=== PATIENT | female | born 1960 | race African-American/Black ===

== ENCOUNTER 2020-11-05 20:32 | Inpatient (IN) ==
--- NOTE | 2020-11-05 21:15 | DR.EXTPAIN ---
HPI Time seen Time Seen by Provider: 11/05/20 20:51 PCP Primary Care Physician: TISHA HPI Comment HPI Comment: PATIENT IS 60 YEAR OLD FEMALE IN ER WITH PAIN, SWELLING LOWER EXTREMITIES AND NECROTIC WOUND ON THE RIGHT LEG. PATIENT IS HAVING WALKER, HAVING PROBLEM ANBULATING AND WORSENING OF UCER AND REDNESS RIGHT LEG. NO FEVER. ULCER HAVE DRAINAGE ALSO. EDEMA LOWER EXTREMITY IS WORSE TODAY. HAVING 8/10 PAIN RT LOWER EXTREMITY. Complaint/Symptoms Chief Complaint Doctor Comments: PAIN AND SWELLING IN LOWER EXTREMITIES AND NECROTIC WOUND RT LEG. Chief Complaint:: PT C/O RT LOWER EXT PAIN AND SWELLING OF THE ENTIRE RT LEG.PT HAS A OPEN WOUND WITH EXUDATE TO RT LOWER EXT COVID-19 Coronavirus risk:travel/contact w/high risk person: No Has patient experienced Coronavirus symptoms: No Nurses notes reviewed Nurses Notes Review: Yes Source History Provided: Patient and Family Member Mode of arrival Mode of Arrival: Wheelchair Timing Onset of Chief Complaint: 11/05/20 Context History of: Arthritis Associated signs and symptoms Associated Signs and Symptoms: Numbeness, Weakness, Pain, Swelling and Shortness of Breath (ON EXERTION.) Other history Other History: HTN. PMH PMH Past Medical History: Yes Past Medical History: Hypertension Past Medical History Comment: CANCER Past Surgical History: Yes Surgical History: Angioplasty/Stents Family History History of Family Medical Conditions: Yes Family Medical History: Diabetes Mellitus, Cancer, [place], Coronary Artery Disease and Hypertension Social History Type of Tobacco Use: Cigarettes Does any household member use tobacco: Yes Alcohol Use: None Do you use any recreational Drugs:: No Lives With: Family Lives Where: Home Travel Risk Coronavirus risk:travel/contact w/high risk person: No Has patient experienced Coronavirus symptoms: No Infectious screening In the last 2 months have you had wt loss of >10#?: NO Have you had fever, night sweats or hemotysis?: No Have you traveled outside the country in the last 6 months?: No Isolation: Standard ROS Review of Systems Constitutional: See HPI, Weakness and Fatigue; negative Fever Eyes: No Symptoms Reported and See HPI ENTM: No Symptoms Reported; negative Nose Discharge and Nose Congestion Respiratoy: See HPI and Short of Breath (ON EXERTION); negative Moist Cough and Wheezing Cardiovascular: See HPI and Edema; negative Chest Pain Gastrointestinal/Abdominal: No Symptoms Reported and See HPI; negative Abdominal Pain, Diarrhea and Vomiting Genitourinary: No Symptoms Reported and See HPI; negative Dysuria and Hematuria Neurological: See HPI and Weakness; negative Headache and Dizziness Musculoskeletal: See HPI, Back Pain and Leg (RIGHT LEG PAIN.) Integumentary: See HPI, Change in Color and Wound (NECROTIC WOUND RIGHT LEG WITH REDNESS RT LEG.) Hematologic/Lymphatic: See HPI and Easy Bruising Endocrine: No Symptoms Reported and See HPI; negative Increased Thirst and Increased Urine Psychiatric: No Symptoms Reported and See HPI All Other Systems: Reviewed and Negative PE Vital Signs Vitals: Temperature 98.3 F Pulse Rate 99 Respiratory Rate 20 Blood Pressure [Left Calf] 114/77 Blood Pressure [Right Arm] 143/77 Blood Pressure 118/56 O2 Sat by Pulse Oximetry 90 General General Appearance: Alert, In Distress (MILD RESPITORY DISTRESS ON MOVEMENT.) and Obese Head Head Exam: Normal Inspection and Atraumatic Eyes Eye exam: Normal Appearance and PERRL; negative Scleral Icterus and Conjunctival Injection ENT ENT Exam: Normal Exam, Normal Oropharynx, Normal External Ear Exam and TM's Normal Bilaterally Neck Neck Exam: Normal Inspection and Trachea Midline; negative Tenderness and Lymphadenopathy Chest Chest Inspection: Normal Inspection and Symmetric Chest Wall Rise; negative Tenderness Respiratory Respiratory Exam: Respiratory Distress; negative Accessory Muscle Use and Chest Wall Tenderness Respiratory Exam: Bilateral: Rhonchi and Lower: Rhonchi Cardiovascular Cardiovascular Exam: Regular Rate, Normal Rhythm and Normal Heart Sounds; negative Systolic Murmur and Diastolic Murmur Abdominal Exam Abdominal Exam: Normal Inspection, Normal Bowel Sounds and Soft; negative Tenderness Extremities Extremities Exam: Tenderness, Normal Capillary Refill, Edema (LOWER EXTREMITIES.), Calf Tenderness and Other (NECROTIC WOUND LOWER EXTREMITIES.) Lower Extremities Lower Leg Exam: Other (NECROTIC WOUND LOWER LED. REDNESS LEGS GREATER RT LEG.) Back Back Exam: Paraspinal Tenderness; negative (R) CVA Tenderness and (L) CVA Tenderness Neurological Neurological Exam: Alert and Oriented X3; negative Motor Sensory Deficit Psychiatric Psychiatric Exam: Normal Affect and Normal Mood Skin Skin Exam: Erythema Type of Lesion: Other (NECROTIC WOUND LOWER EXTREMITIES.) Distribution: LLE and RLE Description: Tenderness, Erythematous and Swelling MDM Differential Diagnosis Differential Diagnosis: Other (NECROTIC WOUND RT LEG, EDEMA, CELLULITIS, CHF.) COURSE Treatment Treatment: SEE ORDERS. VANCOMYCIN 1GM IVPC, LAXIX 40MG IV, ZOFRAN 4MG IV AND ZOREAN 4MG IV IN ER. Consultation Consultation Comments: DISCUSSED PATIENT WITH DR. MERA. HE WILL ADMIT PATIENT. Education/Counseling Education/Counseling: Patient and Family Educated On: Diagnosis ROR Labs Reviewed Laboratory Results Reviewed?: Yes Result Diagrams: 11/11/20 05:44 11/11/20 05:44 Laboratory: 11/05/20 21:56 Leg - Right Wound Gram Stain - Final 11/05/20 21:56 Leg - Right Wound Culture - Final Acinetobacter Baumanii/Haemoly Staphylococcus Aureus WBC 8.7 X10^3/uL (3.6-10.0) 11/05/20 21:25 RBC 4.59 X10^6/uL (3.5-5.4) 11/05/20 21:25 Hgb 15.0 g/dL (12.0-16.0) 11/05/20 21:25 Hct 46.2 % (36.0-47.0) 11/05/20 21:25 MCV 100.7 fL (80.0-100.0) H 11/05/20 21:25 MCH 32.8 pg (27.0-34.0) 11/05/20 21:25 MCHC 32.6 g/dL (33.0-35.0) L 11/05/20 21:25 RDW 14.6 % (11.6-16.5) 11/05/20 21: Plt Count 123 X10^3/uL (150.0-450.0) L 11/05/20 21:25 MPV 10.3 fL (7.4-11.0) 11/05/20 21:25 Neut % (Auto) 87.6 % (42.0-75.0) H 11/05/20 21:25 Lymph % (Auto) 5.8 % (21.0-51.0) L 11/05/20 21:25 [place] % (Auto) 5.8 % (0.0-13.0) 11/05/20 21:25 Eos % (Auto) 0.5 % (0.9-2.9) L 11/05/20 21:25 Baso % (Auto) 0.3 % (0.2-1.0) 11/05/20 21:25 Neut # (Auto) 7.6 x10^3/uL (2.2-4.8) H 11/05/20 21:25 Lymph # (Auto) 0.5 X10^3/uL (1.3-2.9) L 11/05/20 21:25 [place] # (Auto) 0.5 x10^3/uL (0.3-0.8) 11/05/20 21:25 Eos # (Auto) 0.0 x10^3/uL (0.0-0.2) 11/05/20 21:25 Baso # (Auto) 0.0 X10^3/uL (0.0-0.1) 11/05/20 21:25 Absolute Nucleated RBC 0.3 /100WBC 11/05/20 21:25 Sodium 134 mmol/L (136-145) L 11/05/20 21:25 Corrected Sodium TNP 11/05/20 21:25 Potassium 4.3 mmol/L (3.5-5.1) 11/05/20 21:25 Chloride 98 mmol/L (98-107) 11/05/20 21:25 Carbon Dioxide 30.3 mmol/L (21-32) 11/05/20 21:25 BUN 31 mg/dL (7-18) H 11/05/20 21:25 Creatinine 1.36 mg/dL (0.55-1.02) H 11/05/20 21:25 Est GFR (MDRD) Af Amer 51 (>60) L 11/05/20 21:25 Est GFR (MDRD) Non-Af 42 (>60) L 11/05/20 21:25 Glucose 82 mg/dL (65-99) 11/05/20 21:25 Calcium 9.0 mg/dL (8.5-10.1) 11/05/20 21:25 Corrected Calcium 10.0 mg/dL (8.5-10.1) 11/05/20 21:25 Total Bilirubin 2.30 mg/dL (0.2-1.0) H 11/05/20 21:25 AST 39 Units/L (15-37) H 11/05/20 21:25 ALT 14 Units/L (12-78) 11/05/20 21:25 Alkaline Phosphatase 93 Units/L (46-116) 11/05/20 21:25 Creatine Kinase 308 Units/L (26-192) H 11/05/20 21:25 CK-MB (CK-2) 3.1 ng/mL (0-4.0) 11/05/20 21:25 CK/CKMB % Calc 1.0 % (<4) 11/05/20 21:25 Troponin I 0.02 ng/mL (0-1.5) 11/05/20 21: B-Natriuretic Peptide 1190 pg/mL (0-79) H* 11/05/20 21:25 Total Protein 7.4 g/dL (6.4-8.2) 11/05/20 21: Albumin 2.8 g/dL (3.4-5.0) L 11/05/20 21: Globulin 4.6 g/dL (2.5-4.5) H 11/05/20 21: Albumin/Globulin Ratio 0.6 Ratio (1.1-2.1) L 11/05/20 21:25 Specimen Type Catherized urine 11/06/20 00: Urine Color Mya (YELLOW) 11/06/20: Urine Appearance Clear (CLEAR) 11/06/20 00: Urine pH 5.0 (5.0 - 8.0) 11/06/20 00:19 Ur Specific [place] 1.015 (1.000-1.030) 11/06/20 00: Urine Protein 3+ (NEGATIVE) 11/06/20 00: Urine Glucose (UA) Negative (NEGATIVE) 11/06/20 00: Urine Ketones 1+ (NEGATIVE) 11/06/20: Urine Occult Blood 3+ (NEGATIVE) 11/06/20: Urine Nitrite Negative (NEGATIVE) 11/06/20: Urine Bilirubin 2+ (NEGATIVE) 11/06/20: Urine Urobilinogen 3+ (NORMAL) 11/06/20: Ur Leukocyte Esterase 1+ (NEGATIVE) 11/06/20: Urine RBC 3-5 /HPF (0-3) A 11/06/20 00: Urine WBC 0-2 /HPF (0-5) 11/06/20 00: Ur Squamous Epith Cells Rare /HPF (NEGATIVE) 11/06/20 00: Urine Bacteria Negative /HPF (NEGATIVE) 11/06/20 00:19 Hyaline Casts Many /LPF (NEGATIVE) 11/06/20 00:19 Urine Mucus Few /HPF (NEGATIVE) 11/06/20 00:19 Ur Culture Indicated? No/not indicated 11/06/20 00:19 SARS-CoV-2 (PCR) Negative (NEGATIVE) 11/05/20 22:21 Influenza Type A (PCR) Negative (NEGATIVE) 11/05/20 22:21 Influenza Type B (PCR) Negative (NEGATIVE) 11/05/20 22:21 RSV (PCR) Negative (NEGATIVE) 11/05/20 22:21 XRAY XRAY Interpreted by: Radiologist (REPORT NOTED AND DISCUSSED WITH PATIENT.) and Self EKG Rate: 101 [place]: Normal Rhythm: ST Block: RBBB and IVCD Hypertrophy: None ST: Nonsp Opioid Opioid Risk Tool Age (Robel box if 16-45): No History of Preadolescent Sexual Abuse: No Total: 0 Total Score Risk Category: Low Risk Copyright: Laureano LR predicting aberrant behaviors Diagnosis Discharge Problem: 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 CHF (congestive heart failure) Qualifiers: Heart failure type: combined systolic and diastolic Heart failure chronicity: acute on chronic Qualified Code(s): I50.43 - Acute on chronic combined systolic (congestive) and diastolic (congestive) heart failure Hypertension Qualifiers: Hypertension type: essential hypertension Qualified Code(s): I10 - Essential (primary) hypertension Cellulitis Qualifiers: Site of cellulitis: extremity Site of cellulitis of extremity: lower extremity Laterality: right Qualified Code(s): L03.115 - Cellulitis of right lower limb Edema Qualifiers: Edema type: localized Qualified Code(s): R60.0 - Localized edema Instructions Instructions: Steps to Quit Smoking, [id number] Cellulitis, Adult, [id number] Hypertension, [id number] Surgical Wound Debridement, Care After Heart Failure, [id number]
[2020-11-05] MEDS ORDERED: ZOFRAN INJ 4 MG VIAL IVP ONE (21:38)
[2020-11-05] MEDS ORDERED: MORPHINE SULFATE INJ 4 MG IVP ONE (21:38)
[2020-11-05 21:40] LABS: BASOPHILS % (AUTO) 0.3 % (0.2-1.0); EOSINOPHILS % (AUTO) 0.5 % (0.9-2.9); HEMATOCRIT 46.2 % (36.0-47.0); LYMPHOCYTES # (AUTO) 0.5 X10^3/uL (1.3-2.9); LYMPHOCYTES % (AUTO) 5.8 % (21.0-51.0); MEAN CORPUSCULAR HEMOGLOBIN 32.8 pg (27.0-34.0); MEAN CORPUSCULAR HGB CONC 32.6 g/dL (33.0-35.0); MEAN CORPUSCULAR VOLUME 100.7 fL (80.0-100.0); MEAN PLATELET VOLUME 10.3 fL (7.4-11.0); MONOCYTES # (AUTO) 0.5 x10^3/uL (0.3-0.8); MONOCYTES % (AUTO) 5.8 % (0.0-13.0); NEUTROPHILS # (AUTO) 7.6 x10^3/uL (2.2-4.8); NEUTROPHILS % (AUTO) 87.6 % (42.0-75.0); PLATELET COUNT 123 X10^3/uL (150.0-450.0); RED BLOOD COUNT 4.59 X10^6/uL (3.5-5.4); RED CELL DISTRIBUTION WIDTH 14.6 % (11.6-16.5); WHITE BLOOD COUNT 8.7 X10^3/uL (3.6-10.0)
[2020-11-05] MEDS ORDERED: MORPHINE SULFATE INJ 4 MG ONE (21:50)
[2020-11-05] MEDS ORDERED: ZOFRAN INJ 4 MG VIAL ONE (21:50)
[2020-11-05 21:52] LABS: BLOOD UREA NITROGEN 31 mg/dL (7-18); CARBON DIOXIDE 30.3 mmol/L (21-32); CHLORIDE 98 mmol/L (98-107); CREATININE 1.36 mg/dL (0.55-1.02); SODIUM 134 mmol/L (136-145); TROPONIN I 0.02 ng/mL (0-1.5); eGFR NON BLACK RACES 42 (>60)
[2020-11-05 21:57] LABS: ALANINE AMINOTRANSFERASE 14 Units/L (12-78); ALBUMIN 2.8 g/dL (3.4-5.0); ALKALINE PHOSPHATASE 93 Units/L (46-116); ASPARTATE AMINO TRANSFERASE 39 Units/L (15-37); CREATINE KINASE 308 Units/L (26-192); CREATINE KINASE MB 3.1 ng/mL (0-4.0); TOTAL PROTEIN 7.4 g/dL (6.4-8.2)
--- NOTE | 2020-11-05 22:03 | RAD ---
EXAM: CHEST X-RAYHISTORY: Right upper extremity pain and swelling. Open wound.TECHNIQUE: AP chest x-ray dated 11/05/2020 at 9:39 PM.COMPARISON: None.FINDINGS:The right anterior chest wall chest port is noted in situ with the distal tip in the right atrium. There is severe aortic atherosclerosis.There is evidence for cardiomegaly. The pulmonary vascularity and interstitial markings are diffusely prominent, consistent with mild CHF or volume overload in the appropriate clinical setting; differential diagnosis includes (but is not limited to) mild bronchitis and interstitial pneumonia in the appropriate clinical setting.There is no gross focal lung consolidation, pleural effusion, or pneumothorax seen. The visualized bony structures are within normal limits.IMPRESSION:1. Findings consistent with mild CHF or volume overload in the appropriate clinical setting; DDX includes (but is not limited to) mild bronchitis and interstitial pneumonia in the appropriate clinical setting.2. Recommend clinical correlation and appropriate follow-up CXR evaluation to ensure interval clearance as clinically warranted.3. Consider follow-up noncontrast chest CT to rule out Covid pneumonia if clinically warranted.Electronically signed by: Tavon Che (November 05, 2020 22:01:45)
--- NOTE | 2020-11-05 22:07 | RAD ---
EXAM: RIGHT TIBIA/FIBULA X-RAY SERIESHISTORY: Pain.TECHNIQUE: 2 viewsCOMPARISON: None available.FINDINGS:There is no acute bony fracture, or joint subluxation or dislocation seen. No evidence for inflammatory or degenerative arthritis is seen. No focal bone erosion or sclerosis is seen. There are plantar and Achilles calcaneal bone spurs. There is no bone destruction reminiscent of osteomyelitis seen.The leg is obese. There is suggestion of nonspecific dermal and/or subcutaneous soft tissue calcifications throughout the distal leg. There is cutaneous ulceration and subcutaneous emphysema seen in the distal anterior pretibial region which may represent cellulitis with gas producing organism; rule out necrotizing fasciitis. Clinical correlation is advised. No foreign body is seen.IMPRESSION:1. No acute bony fracture, or joint subluxation or dislocation seen.2. No bone destruction reminiscent of osteomyelitis seen. Consider follow-up MRI to rule out radiographically occult early osteomyelitis as clinically warranted.3. Suggestion of nonspecific dermal and/or subcutaneous soft tissue calcifications throughout the distal leg; DDx includes sequela of chronic venous stasis changes.4. Cutaneous ulceration and subcutaneous emphysema seen in the distal anterior pretibial region which may represent cellulitis with gas producing organism; rule out necrotizing fasciitis. Clinical correlation is advised. Consider follow-up evaluation and CT for further assessment as clinically warranted.Electronically signed by: Tavon Che (November 05, 2020 22:05:06)
[2020-11-05] MEDS ORDERED: PHARMACY CONSULT - VANCOMYCIN XX SCH (23:45)
[2020-11-05] MEDS ORDERED: VANCOMYCIN IV *PREMIX 1 G/200 ML BAG 1 G/200 ML PIGGYBACK IV ONE ×2 (23:48→23:54)
[2020-11-06] MEDS ORDERED: ZOFRAN INJ 4 MG VIAL IVP PRN (00:29)
[2020-11-06] MEDS ORDERED: LASIX IVP ONE (00:33)
[2020-11-06] MEDS: LASIX IVP ONE ×2 (00:44→00:45)
[2020-11-06 01:07] LABS: BILIRUBIN,URINE 2+ (NEGATIVE); BLOOD/HEMOGLOBIN,URINE 3+ (NEGATIVE); GLUCOSE, URINE NEGATIVE (NEGATIVE); KETONES,URINE 1+ (NEGATIVE); LEUKOCYTE ESTERASE ,URINE 1+ (NEGATIVE); NITRITES,URINE NEGATIVE (NEGATIVE); PROTEIN,URINE 3+ (NEGATIVE); UROBILINOGEN,URINE 3+ (NORMAL)
[2020-11-06 01:16] LABS: APPEARANCE,URINE CLEAR (CLEAR); COLOR,URINE AMBER (YELLOW)
[2020-11-06 01:17] LABS: BACTERIA,URINE NEGATIVE /HPF (NEGATIVE); HYALINE CASTS, URINE MANY /LPF (NEGATIVE); MUCUS,URINE FEW /HPF (NEGATIVE); SQUAMOUS EPITHELIAL CELL,UR RARE /HPF (NEGATIVE)
[2020-11-06] MEDS ORDERED: NS IRRIGATION* 500 ML IR ONE (02:14)
[2020-11-06 06:09] LABS: BASOPHILS % (AUTO) 0.2 % (0.2-1.0); EOSINOPHILS # (AUTO) 0.1 x10^3/uL (0.0-0.2); EOSINOPHILS % (AUTO) 0.5 % (0.9-2.9); HEMATOCRIT 44.4 % (36.0-47.0); HEMOGLOBIN 14.4 g/dL (12.0-16.0); LYMPHOCYTES # (AUTO) 0.5 X10^3/uL (1.3-2.9); LYMPHOCYTES % (AUTO) 4.7 % (21.0-51.0); MEAN CORPUSCULAR HEMOGLOBIN 33.1 pg (27.0-34.0); MEAN CORPUSCULAR HGB CONC 32.4 g/dL (33.0-35.0); MEAN CORPUSCULAR VOLUME 102.1 fL (80.0-100.0); MONOCYTES # (AUTO) 0.7 x10^3/uL (0.3-0.8); MONOCYTES % (AUTO) 5.9 % (0.0-13.0); NEUTROPHILS # (AUTO) 9.9 x10^3/uL (2.2-4.8); NEUTROPHILS % (AUTO) 88.7 % (42.0-75.0); PLATELET COUNT 119 X10^3/uL (150.0-450.0); RED BLOOD COUNT 4.34 X10^6/uL (3.5-5.4); RED CELL DISTRIBUTION WIDTH 14.6 % (11.6-16.5); WHITE BLOOD COUNT 11.2 X10^3/uL (3.6-10.0)
[2020-11-06 06:18] LABS: ALANINE AMINOTRANSFERASE 12 Units/L (12-78); ALBUMIN 2.6 g/dL (3.4-5.0); ALKALINE PHOSPHATASE 90 Units/L (46-116); ASPARTATE AMINO TRANSFERASE 35 Units/L (15-37); BLOOD UREA NITROGEN 31 mg/dL (7-18); CALCIUM 8.6 mg/dL (8.5-10.1); CARBON DIOXIDE 30.3 mmol/L (21-32); CHLORIDE 100 mmol/L (98-107); COR CA(FOR HYPOALB) 9.7 mg/dL (8.5-10.1); MAGNESIUM 1.7 mg/dL (1.7-2.9); SODIUM 138 mmol/L (136-145); TOTAL PROTEIN 6.9 g/dL (6.4-8.2); eGFR NON BLACK RACES 41 (>60)
[2020-11-06] MEDS ORDERED: LASIX IVP SCH (09:00)
[2020-11-06] MEDS ORDERED: LOVENOX INJ 30 MG SYR SC SCH (09:00)
[2020-11-06] MEDS: ACCUNEB 1.25 MG NEBULE NEB SCH ×4 (09:16→21:43)
[2020-11-06] MEDS ORDERED: NS 250 ML IV 250 ML IV ONE (11:35)
[2020-11-06] MEDS ORDERED: VANCOMYCIN IV *PREMIX 1.75 G/350 ML BAG 1.75 G/350 ML PIGGYBACK IV SCH (12:00)
[2020-11-06] MEDS: MORPHINE SULFATE INJ 4 MG IVP PRN ×2 (12:05→20:58)
[2020-11-06] MEDS: ZOFRAN INJ 4 MG VIAL IVP PRN ×2 (12:05→20:58)
[2020-11-06] MEDS: VANCOMYCIN IV *PREMIX 1.5 G/300 ML BAG 1.5 G/300 ML PIGGYBACK IV SCH (12:06)
[2020-11-06] MEDS: LASIX IVP SCH ×2 (12:14→17:57)
[2020-11-06] MEDS ORDERED: DIPRIVAN VIAL ONE (13:01)
[2020-11-06] MEDS ORDERED: VERSED ONE (13:01)
[2020-11-06] MEDS ORDERED: XYLOCAINE 2 % (PLAIN) ONE (13:01)
[2020-11-06] MEDS ORDERED: KETALAR ONE (13:01)
[2020-11-06] MEDS ORDERED: LEVAQUIN PREMIX IV 750 MG 750 MG/150 ML BAG IV SCH (14:00)
--- NOTE | 2020-11-06 14:33 | DR.H&P ---
H&P - History & Physical for Day of: H&P Date: 11/06/20 - Chief Complaint Chief Complaint: RLE PAIN, SWELLING, WOUND. COUGH, SHORTNESS OF BREATH - History of Present Illness History of Present Illness: IS A 60 YEAR OLD PATIENT OF . SHE PRESENTED TO THE ER WITH COMPLAINTS OF RIGHT LOWER EXTREMITY PAIN AND SWELLING. SHE ALSO REPORTED SHORTNESS OF BREATH AND A NON-PRODUCTIVE COUGH. ON EXAMINATION, PATIENT IS NOTED TO HAVE AN OPEN WOUND WITH NECROSIS AND YELLOW SLOUGH TO THE RIGHT LOWER LEG. THERE WAS A MODERATE AMOUNT OF SEROUS DRAINAGE FROM WOUND. RIGHT LOWER EXTREMITY IS ALSO NOTED TO HAVE ERYTHEMA AND 4+ PITTING EDEMA. SHE REPORTS THROBBING PAIN AND RATES IT A 4/10. AUSCULTATION OF LUNG SY REVEALED DIMINISHED LUNG SOUNDS THROUGHOUT. HER PMH INCLUDES HTN, BREAST CANCER, CHF AND CARDIAC STENTS. ON ARRIVAL, VITALS WERE 98.3-106-20-89%RA-124/77. LABS WERE OBTAINED. ABNORMAL LAB VALUES INCLUDE THE FOLLOWING: SODIUM 134, BUN 31, CREATININE 1.36, TOTAL BILI 2.30, AST 39, CREATINE KINASE 308, BNP 1190, ALBUMIN 2.8, GLOBULIN 4.6. URINALYSIS REVEALED: WBC 0-2, RBC 3-5, LEUKOCYTES 1+, BILIRUBIN 2+, OCCULT BLOOD 3+, PROTEIN 3+. COVID-19, INFLUENZA, AND RSV NEGATIVE. BLOOD AND WOUND CULTURES WERE SET UP. A RIGHT LOWER LEG XRAY WAS OBTAINED AND REVEALED: 1. No acute bony fracture, or joint subluxation or dislocation seen. 2. No bone destruction reminiscent of osteomyelitis seen. Consider follow-up MRI to rule out radiographically occult early osteomyelitis as clinically warranted. 3. Suggestion of nonspecific dermal and/or subcutaneous soft tissue calcifications throughout the distal leg; DDx includes sequela of chronic venous stasis changes. 4. Cutaneous ulceration and subcutaneous emphysema seen in the distal anterior pretibial region which may represent cellulitis with gas producing organism; rule out necrotizing fasciitis. Clinical correlation is advised. Consider follow-up evaluation and CT for further assessment as clinically warranted. A CHEST XRAY WAS OBTAINED AND REVEALED: 1. Findings consistent with mild CHF or volume overload in the appropriate clinical setting; DDX includes (but is not limited to) mild bronchitis and interstitial pneumonia in the appropriate clinical setting. 2. Recommend clinical correlation and appropriate follow-up CXR evaluation to ensure interval clearance as clinically warranted. 3. Consider follow-up noncontrast chest CT to rule out Covid pneumonia if clinically warranted. EKG REVEALED: SINUS TACHYCARDIA WITH HR 100. IN THE ER, SHE WAS GIVEN MORPHINE 4MG IV X 1 DOSE, ZOFRAN 4MG IV X 1 DOSE, LASIX 40MG IV X 1 DOSE, AND VANCOMYCIN 1G IV X 1 DOSE IN THE ER. [facility]AT[facility] OF RIGHT LOWER EXTREMITY CELLULITIS, RLE NECROTIC ULCER, CHF, AND ACUTE BRONCHITIS. SHE WAS STARTED ON VANCOMYCIN 1.5G IV DAILY, LEVAQUIN 750MG IV DAILY, LOVENOX 30MG SC BID, LASIX 20MG IV BID, MORPHINE 4MG IV Q6H PRN, AND ZOFRAN 4MG IV Q6H PRN. WE WILL CONSULT WITH , GENERAL SURGEON FOR POSSIBLE DEBRIDEMENT OF WOUND. OTHERWISE, WE PLAN TO FOLLOW UP WITH AM LABS AND CONTINUE TO MONITOR. TIME SPENT ON CLINICAL ASSESSMENT, REVIEWING LABS AND IMAGING, DECISION MAKING, AND DOCUMENTATION GREATER THAN 75 MINUTES. - Past Medical History Past Medical History: CHF, Hypertension Additional Medical History: BREAST CANCER - Past Surgical History Surgical History: Angioplasty/Stents - Family History Family Medical History: Diabetes Mellitus, Cancer, [place], Coronary Artery Disease, Hypertension - Social History Does patient currently use any type of tobacco product: Yes Have you used tobacco products in the last 12 months: Yes Type of Tobacco Use: Cigarettes Does any household member use tobacco: Yes Alcohol Use: None Drug Use: None - Medications Home Medications: ceftriaxone [From Rocephin] Allergy (Verified 03/26/19 10:56) Penicillins Allergy (Verified 03/26/19 10:56) CONTINUE taking the following medications furosemide 40 mg PO DAILY 11/05/20 [History] - Review of Systems Constitutional: Weakness Eyes: No Symptoms Reported ENT: No Symptoms Reported Respiratory: See HPI, Cough, Shortness of Breath Cardiovascular: Edema (RLE 4+ PITTING EDEMA ) Gastrointestinal: No Symptoms Reported Genitourinary: No Symptoms Reported Musculoskeletal: See HPI, Leg Pain Skin: See HPI, Wound (RIGHT LOWER EXTREMITY WOUND ) Neurological: See HPI, Weakness - Physical Exam Vital Signs: Temperature 97.2 F Pulse Rate [Brachial] 95 Pulse Rate 87 Respiratory Rate 20 Blood Pressure [Left Calf] 114/77 Blood Pressure [Right Arm] 100/72 Blood Pressure 118/56 O2 Sat by Pulse Oximetry 93 Oriented: Normal Eyes: Normal Ear: Normal Nose: Normal Throat: Normal Respiratory: Diminished Throughout Cardiovascular: Edema (RLE 4+ PITTING EDEMA ) : Normal Auscultation: Bowel Sounds: Normal Palpation: Normal Tenderness: Normal Skin: Red, Tender, Hot, Wound Musculoskeletal: Right, Leg, Swelling, Tender Psychiatric: Normal Mood Description: Calm Affect: Normal Speech Pattern: Clear - Assessment/Plan (1) Lower extremity cellulitis Qualifiers: Laterality: right Qualified Code(s): L03.115 - Cellulitis of right lower limb Status: Acute Plan: ADMIT, CONSULT GENERAL SURGERY, VANCOMYCIN 1.5G IV DAILY, LEVAQUIN 750MG IV DAILY, LOVENOX 30MG SC BID, LASIX 20MG IV BID, MORPHINE 4MG IV Q6H PRN, AND ZOFRAN 4MG IV Q6H PRN. (2) Wound of lower extremity Qualifiers: Encounter type: initial encounter Laterality: right Qualified Code(s): S81.801A - Unspecified open wound, right lower leg, initial encounter Status: Acute (3) Congestive heart failure Qualifiers: Heart failure type: unspecified Heart failure chronicity: acute on chronic Qualified Code(s): I50.9 - Heart failure, unspecified Status: Acute - Allergies Allergies/Adverse Reactions: Allergies Allergy/AdvReac Type Severity Reaction Status Date / Time ceftriaxone [From Rocephin] Allergy Verified 03/26/19 10:56 Penicillins Allergy Verified 03/26/19 10:56
[2020-11-06 22:04] VITALS: BMI 49.6
[2020-11-07] MEDS ORDERED: NS 100 ML IV 100 ML IV ONE ×2 (00:22→05:25)
[2020-11-07] MEDS: ACCUNEB 1.25 MG NEBULE NEB SCH ×6 (00:23→20:52)
[2020-11-07 06:10] LABS: ABG HCO3 26.4 mmol/L (22-26)
[2020-11-07 06:12] LABS: ABG ALLEN TEST POS
[2020-11-07 06:26] LABS: BASOPHILS % (AUTO) 0.4 % (0.2-1.0); EOSINOPHILS % (AUTO) 0.4 % (0.9-2.9); HEMOGLOBIN 14.7 g/dL (12.0-16.0); LYMPHOCYTES # (AUTO) 0.7 X10^3/uL (1.3-2.9); LYMPHOCYTES % (AUTO) 8.3 % (21.0-51.0); MEAN CORPUSCULAR HEMOGLOBIN 33.6 pg (27.0-34.0); MEAN CORPUSCULAR HGB CONC 32.7 g/dL (33.0-35.0); MEAN CORPUSCULAR VOLUME 102.7 fL (80.0-100.0); MEAN PLATELET VOLUME 10.1 fL (7.4-11.0); MONOCYTES # (AUTO) 0.7 x10^3/uL (0.3-0.8); MONOCYTES % (AUTO) 8.1 % (0.0-13.0); NEUTROPHILS # (AUTO) 7.3 x10^3/uL (2.2-4.8); NEUTROPHILS % (AUTO) 82.8 % (42.0-75.0); PLATELET COUNT 124 X10^3/uL (150.0-450.0); RED BLOOD COUNT 4.39 X10^6/uL (3.5-5.4); RED CELL DISTRIBUTION WIDTH 14.7 % (11.6-16.5); WHITE BLOOD COUNT 8.9 X10^3/uL (3.6-10.0)
--- NOTE | 2020-11-07 06:37 | RAD ---
HISTORYCHFSTUDYCHEST, 1 [id number]/09/2021.TECHNIQUEAP view of the chestFINDINGSRight chest wall port with tip in good position. Cardiac silhouette is borderline in size. Mediastinal contours appear stable. CT from 03/26/2019 showed mediastinal adenopathy. Mild improvement of bilateral interstitial and patchy bibasilar pulmonary opacities. Blunted costophrenic sulci. No discernible pneumothorax.IMPRESSIONMild improvement in pulmonary edema. Suspect small pleural effusions.Electronically signed by: Jeff Sheets (November 07, 2020 06:35:22)
[2020-11-07 06:53] LABS: ALANINE AMINOTRANSFERASE 14 Units/L (12-78); ALBUMIN 2.4 g/dL (3.4-5.0); ALKALINE PHOSPHATASE 96 Units/L (46-116); ASPARTATE AMINO TRANSFERASE 59 Units/L (15-37); BLOOD UREA NITROGEN 37 mg/dL (7-18); CALCIUM 8.6 mg/dL (8.5-10.1); CARBON DIOXIDE 24.8 mmol/L (21-32); CHLORIDE 100 mmol/L (98-107); COR CA(FOR HYPOALB) 9.9 mg/dL (8.5-10.1); CREATININE 1.79 mg/dL (0.55-1.02); SODIUM 137 mmol/L (136-145); TOTAL PROTEIN 6.9 g/dL (6.4-8.2); eGFR NON BLACK RACES 31 (>60)
[2020-11-07] MEDS ORDERED: DECADRON INJ ONE (07:14)
[2020-11-07] MEDS ORDERED: TORADOL 30 MG VIAL ONE (07:14)
[2020-11-07] MEDS ORDERED: FENTANYL INJ 100 mcg ONE (07:15)
[2020-11-07] MEDS ORDERED: OFIRMEV IV 1000 MG VIAL 1,000 MG/100 ML VIAL IV ONE (07:15)
[2020-11-07] MEDS ORDERED: BETADINE SOLN ONE (07:15)
[2020-11-07] MEDS ORDERED: LR 1000 ML IV 1,000 ML IV ONE (07:36)
[2020-11-07] MEDS ORDERED: BACTROBAN TOPICAL OINT ONE (07:46)
[2020-11-07] MEDS: DIFLUCAN 100 MG IV (MIX by PHARMACY)* 100 MG/50 ML BAG IV SCH (09:47)
[2020-11-07] MEDS: LASIX IVP SCH (09:52)
[2020-11-07] MEDS: MORPHINE SULFATE INJ 4 MG IVP PRN (11:15)
--- NOTE | 2020-11-07 13:48 | PCM.PROG ---
Progress Note - Progress Note for Day of Date of Exam: 11/07/20 - Subjective Subjective: WAS ADMITTED FOR TREATMENT OF LOWER EXTREMITY CELLULITIS, RIGHT LOWER EXTREMITY NECROTIC WOUND, AND CONGESTIVE HEART FAILURE. TODAY, PATIENT IS ALERT, LYING IN BED ON MORNING ROUNDS. PATIENT APPEARS TO BE ANXIOUS. SHE IS CURRENTLY WEARING THE BIPAP MASK. STAFF REPORTS THAT PATIENTS OXYGEN SATURATIONS HAVE DROPPED TO THE 70s WHILE ON ROOM AIR. SHE WAS SCHEDULED FOR A WOUND DEBRIDEMENT THIS MORNING, HOWEVER, THEY WERE UNABLE TO MAINTAIN OXYGEN SATURATIONS ABOVE 88% WHILE ON THE VENTIMASK. SHE WAS ORDERED TO WEAR THE BIPAP AT THAT TIME. SHE CONTINUES WITH PAIN AND SWELLING TO THE RIGHT LOWER EXTREMITY. SHE DOES ADMIT TO SHORTNESS OF BREATH AT THIS TIME. HER SATURATIONS A RE CURRENTLY 85% WHILE ON THE BIPAP. PATIENT DID REMOVE MASK AND HER SATURATIONS DROPPED TO 79%. MASK WAS REPLACED. ON EXAMINATION, HEART IS REGULAR IN RATE AND RHYTHM. BILATERAL LUNGS ARE NOTED WITH DIMINISHED LUNG SOUNDS THROUGHOUT. ABDOMEN IS ROUND, SOFT, AND NON-TENDER WITH NORMAL BOWEL SOUNDS NOTED IN ALL QUADRANTS. RIGHT LEG CONTINUES WITH 3+ PITTING EDEMA AND ERYTHEMA. DRESSING NOTED TO LOWER EXTREMITY IS DRY AND INTACT. HER VITALS AT THIS TIME ARE: 98.6-83-24-86%-97/79. LABS WERE OBTAINED. ABNORMAL LAB VALUES INCLUDE THE FOLLOWING: BUN 37, CREATININE 1.79, TOTAL BILI 1.60, AST 59, CRP 193.90, BNP 1200, ALBUMIN 2.4. ABG REVEALED: PH 7.290, PC02 55, P02 58, HC03 26.4, 02 SAT 86, FI02 40. BLOOD AND WOUND CULTURES ARE PENDING. PRELIMINARY WOUND CULTURES REPORT GROWTH OF GRAM NEGATIVE RODS AND COAGULASE POSITIVE STAPH. A CHEST XRAY WAS REPEATED THIS MORNING AND REVEALED: Mild improvement in pulmonary edema. Suspect small pleural effusions. SHE IS CURRENTLY RECEIVING VANCOMYCIN 1.5G IV DAILY, LEVAQUIN 750MG IV DAILY, DIFLUCAN 100MG IV DAILY, LASIX 20MG IV BID, MORPHINE 4MG IV Q6H PRN, AND ZOFRAN 4MG IV Q6H PRN. WE WILL CONTINUE WITH CURRENT PLAN OF CARE TODAY. WILL CONTINUE TO MONITOR PATIENT AND WILL DEBRIDE WOUND WHEN SHE IS STABLE FROM A RESPIRATORY STANDPOINT. OTHERWISE, WE WILL FOLLOW UP WITH AM LABS AND CHEST XRAY AND CONTINUE TO MONITOR. TIME SPENT ON CLINICAL ASSESSMENT, REVIEWING LABS AND IMAGING, DECISION MAKING, AND DOCUMENTATION GREATER THAN 45 MINUTES. - Past Medical Family Social History Past Med/Fam/Surg Hx: No changes since H&P Allergies: Allergies ceftriaxone [From Rocephin] Allergy (Verified 03/26/19 10:56) Penicillins Allergy (Verified 03/26/19 10:56) - Review of Systems ROS: No change since H&P - Vital Signs and I&O's Vital Signs: Temperature 98.6 F Pulse Rate [Brachial] 83 Pulse Rate 90 Respiratory Rate 20 Blood Pressure [Left Calf] 114/77 Blood Pressure [Right Arm] 97/79 Blood Pressure 118/56 O2 Sat by Pulse Oximetry 86 Intake and Output: Intake & Output 11/05/20 11/06/20 11/07/20 11/08/20 11:59 11:59 11:59 11:59 Intake Total 210 / 210 1017 / 1017 Output Total 700 / 700 775 / 775 Balance -490 / -490 242 / 242 - Physical Exam Oriented: Normal Eyes: Normal Ear: Normal Nose: Normal Throat: Normal Respiratory: Generalized, Diminished Cardiovascular: Edema (RLE 4+ PITTING EDEMA ) : Normal Auscultation: Bowel Sounds: Normal Palpation: Normal Tenderness: Normal Skin: Red, Tender, Hot, Wound Musculoskeletal: Right, Leg, Swelling, Tender Psychiatric: Normal Mood Description: Calm Affect: Normal Speech Pattern: Clear, Appropriate - Laboratory and Diagnostics Result Diagrams: 11/07/20 05:26 11/07/20 05:26 Labs: 11/05/20 21:56 Leg - Right Wound Gram Stain - Final 11/05/20 21:56 Leg - Right Wound Culture - Preliminary Laboratory WBC 8.9 X10^3/uL (3.6-10.0) 11/07/20 05:26 RBC 4.39 X10^6/uL (3.5-5.4) 11/07/20 05:26 Hgb 14.7 g/dL (12.0-16.0) 11/07/20 05:26 Hct 45.0 % (36.0-47.0) 11/07/20 05:26 MCV 102.7 fL (80.0-100.0) H 11/07/20 05:26 MCH 33.6 pg (27.0-34.0) 11/07/20 05:26 MCHC 32.7 g/dL (33.0-35.0) L 11/07/20 05:26 RDW 14.7 % (11.6-16.5) 11/07/20 05:26 Plt Count 124 X10^3/uL (150.0-450.0) L 11/07/20 05:26 MPV 10.1 fL (7.4-11.0) 11/07/20 05:26 Neut % (Auto) 82.8 % (42.0-75.0) H 11/07/20 05:26 Lymph % (Auto) 8.3 % (21.0-51.0) L 11/07/20 05:26 [place] % (Auto) 8.1 % (0.0-13.0) 11/07/20 05:26 Eos % (Auto) 0.4 % (0.9-2.9) L 11/07/20 05:26 Baso % (Auto) 0.4 % (0.2-1.0) 11/07/20 05:26 Neut # (Auto) 7.3 x10^3/uL (2.2-4.8) H 11/07/20 05:26 Lymph # (Auto) 0.7 X10^3/uL (1.3-2.9) L 11/07/20 05:26 Leon # (Auto) 0.7 x10^3/uL (0.3-0.8) 11/07/20 05:26 Eos # (Auto) 0.0 x10^3/uL (0.0-0.2) 11/07/20 05:26 Baso # (Auto) 0.0 X10^3/uL (0.0-0.1) 11/07/20 05:26 Absolute Nucleated RBC 0.8 /100WBC 11/07/20 05:26 Sample Site Lr 11/07/20 05:00 ABG pH 7.290 (7.35-7.45) L 11/07/20 05:00 ABG pCO2 55.0 mmHg (35.0-45.0) H* 11/07/20 05:00 ABG pO2 58.0 mmHg (80.0-100.0) L 11/07/20 05:00 ABG HCO3 26.4 mmol/L (22-26) H 11/07/20 05:00 ABG O2 Saturation 86.0 % (90-100) L 11/07/20 05:00 ABG Base Excess -1.0 mmol/L (-2.0-2.0) 11/07/20 05:00 Trino Test Pos 11/07/20 05:00 A-a Gradient 158.0 mmHg 11/07/20 05:00 FiO2 40.0 11/07/20 05:00 Blood Gas Comments Froy well sw 11/07/20 05:00 Sodium 137 mmol/L (136-145) 11/07/20 05:26 Corrected Sodium TNP 11/07/20 05:26 Potassium 4.5 mmol/L (3.5-5.1) 11/07/20 05:26 Chloride 100 mmol/L (98-107) 11/07/20 05:26 Carbon Dioxide 24.8 mmol/L (21-32) 11/07/20 05:26 BUN 37 mg/dL (7-18) H 11/07/20 05:26 Creatinine 1.79 mg/dL (0.55-1.02) H 11/07/20 05:26 Est GFR (MDRD) Af Amer 37 (>60) L 11/07/20 05:26 Est GFR (MDRD) Non-Af 31 (>60) L 11/07/20 05:26 Glucose 74 mg/dL (65-99) 11/07/20 05:26 Lactic Acid 1.6 mmol/L (0.4-2.0) 11/06/20 09:00 Calcium 8.6 mg/dL (8.5-10.1) 11/07/20 05:26 Corrected Calcium 9.9 mg/dL (8.5-10.1) 11/07/20 05:26 Magnesium 1.7 mg/dL (1.7-2.9) 11/06/20 05:37 Total Bilirubin 1.60 mg/dL (0.2-1.0) H 11/07/20 05:26 AST 59 Units/L (15-37) H 11/07/20 05:26 ALT 14 Units/L (12-78) 11/07/20 05:26 Alkaline Phosphatase 96 Units/L (46-116) 11/07/20 05:26 Creatine Kinase 308 Units/L (26-192) H 11/05/20 21:25 CK-MB (CK-2) 3.1 ng/mL (0-4.0) 11/05/20 21:25 CK/CKMB % Calc 1.0 % (<4) 11/05/20 21:25 Troponin I 0.02 ng/mL (0-1.5) 11/05/20 21:25 C-Reactive Protein 193.90 mg/L (0-3.0) H 11/07/20 05:26 B-Natriuretic Peptide 1200 pg/mL (0-79) H* 11/07/20 05:26 Total Protein 6.9 g/dL (6.4-8.2) 11/07/20 05:26 Albumin 2.4 g/dL (3.4-5.0) L 11/07/20 05:26 Globulin 4.5 g/dL (2.5-4.5) 11/07/20 05:26 Albumin/Globulin Ratio 0.5 Ratio (1.1-2.1) L 11/07/20 05:26 Specimen Type Catherized urine 11/06/20 00:19 Urine Color Mya (YELLOW) 11/06/20 00: Urine Appearance Clear (CLEAR) 11/06/20 00:19 Urine pH 5.0 (5.0 - 8.0) 11/06/20 00:19 Ur Specific [place] 1.015 (1.000-1.030) 11/06/20 00:19 Urine Protein 3+ (NEGATIVE) 11/06/20 00: Urine Glucose (UA) Negative (NEGATIVE) 11/06/20 00: Urine Ketones 1+ (NEGATIVE) 11/06/20 00: Urine Occult Blood 3+ (NEGATIVE) 11/06/20 00: Urine Nitrite Negative (NEGATIVE) 11/06/20 00: Urine Bilirubin 2+ (NEGATIVE) 11/06/20 00: Urine Urobilinogen 3+ (NORMAL) 11/06/20 00:19 Ur Leukocyte Esterase 1+ (NEGATIVE) 11/06/20 00:19 Urine RBC 3-5 /HPF (0-3) A 11/06/20 00:19 Urine WBC 0-2 /HPF (0-5) 11/06/20 00:19 Ur Squamous Epith Cells Rare /HPF (NEGATIVE) 11/06/20 00:19 Urine Bacteria Negative /HPF (NEGATIVE) 11/06/20 00:19 Hyaline Casts Many /LPF (NEGATIVE) 11/06/20 00:19 Urine Mucus Few /HPF (NEGATIVE) 11/06/20 00:19 Ur Culture Indicated? No/not indicated 11/06/20 00:19 SARS-CoV-2 (PCR) Negative (NEGATIVE) 11/05/20 22:21 Influenza Type A (PCR) Negative (NEGATIVE) 11/05/20 22:21 Influenza Type B (PCR) Negative (NEGATIVE) 11/05/20 22:21 RSV (PCR) Negative (NEGATIVE) 11/05/20 22:21 - Plan (1) Lower extremity cellulitis Status: Acute Qualifiers: Laterality: right Qualified Code(s): L03.115 - Cellulitis of right lower limb Plan: CONSULT GENERAL SURGERY, VANCOMYCIN 1.5G IV DAILY, LEVAQUIN 750MG IV DAILY, LASIX 20MG IV BID, MORPHINE 4MG IV Q6H PRN, AND ZOFRAN 4MG IV Q6H PRN. (2) Wound of lower extremity Status: Acute Qualifiers: Encounter type: initial encounter Laterality: right Qualified Code(s): S81.801A - Unspecified open wound, right lower leg, initial encounter (3) Congestive heart failure Status: Acute Qualifiers: Heart failure type: unspecified Heart failure chronicity: acute on chronic Qualified Code(s): I50.9 - Heart failure, unspecified Plan: OBTAIN ECHO
[2020-11-07] MEDS: VANCOMYCIN IV *PREMIX 1.5 G/300 ML BAG 1.5 G/300 ML PIGGYBACK IV SCH (14:38)
[2020-11-08] MEDS: ACCUNEB 1.25 MG NEBULE NEB SCH ×3 (00:15→09:30)
[2020-11-08] MEDS: MORPHINE SULFATE INJ 4 MG IVP PRN (00:27)
[2020-11-08 05:41] LABS: ABG BASE EXCESS 2.6 mmol/L (-2.0-2.0)
[2020-11-08 05:42] LABS: ABG ALLEN TEST POS; ABG HCO3 30.2 mmol/L (22-26)
--- NOTE | 2020-11-08 06:06 | RAD ---
HISTORYSOBSTUDYCHEST, 1 [id number]/11/2021.TECHNIQUEAP view of the chestFINDINGSRight chest wall port with tip in good position. The cardiac silhouette is stably enlarged. Mediastinal contours appear stable. No significant change in bilateral interstitial and patchy right base pulmonary opacities. Suspect small pleural effusions. No discernible pneumothorax.IMPRESSIONNo significant change.Electronically signed by: Jeff Sheets (November 08, 2020 06:04:13)
[2020-11-08 06:16] LABS: BASOPHILS % (AUTO) 0.2 % (0.2-1.0); EOSINOPHILS # (AUTO) 0.1 x10^3/uL (0.0-0.2); EOSINOPHILS % (AUTO) 1.1 % (0.9-2.9); HEMATOCRIT 44.2 % (36.0-47.0); HEMOGLOBIN 14.3 g/dL (12.0-16.0); LYMPHOCYTES # (AUTO) 0.8 X10^3/uL (1.3-2.9); LYMPHOCYTES % (AUTO) 11.5 % (21.0-51.0); MEAN CORPUSCULAR HEMOGLOBIN 33.2 pg (27.0-34.0); MEAN CORPUSCULAR HGB CONC 32.4 g/dL (33.0-35.0); MEAN CORPUSCULAR VOLUME 102.2 fL (80.0-100.0); MEAN PLATELET VOLUME 10.5 fL (7.4-11.0); MONOCYTES # (AUTO) 0.6 x10^3/uL (0.3-0.8); MONOCYTES % (AUTO) 7.8 % (0.0-13.0); NEUTROPHILS # (AUTO) 5.7 x10^3/uL (2.2-4.8); NEUTROPHILS % (AUTO) 79.4 % (42.0-75.0); PLATELET COUNT 135 X10^3/uL (150.0-450.0); RED BLOOD COUNT 4.32 X10^6/uL (3.5-5.4); RED CELL DISTRIBUTION WIDTH 14.5 % (11.6-16.5); WHITE BLOOD COUNT 7.2 X10^3/uL (3.6-10.0)
[2020-11-08 06:30] LABS: ALANINE AMINOTRANSFERASE 40 Units/L (12-78); ALBUMIN 2.4 g/dL (3.4-5.0); ALKALINE PHOSPHATASE 94 Units/L (46-116); ASPARTATE AMINO TRANSFERASE 159 Units/L (15-37); BLOOD UREA NITROGEN 34 mg/dL (7-18); CALCIUM 8.5 mg/dL (8.5-10.1); CARBON DIOXIDE 30.7 mmol/L (21-32); CHLORIDE 104 mmol/L (98-107); COR CA(FOR HYPOALB) 9.8 mg/dL (8.5-10.1); CREATININE 1.54 mg/dL (0.55-1.02); SODIUM 140 mmol/L (136-145); TOTAL PROTEIN 6.9 g/dL (6.4-8.2); eGFR NON BLACK RACES 37 (>60)
[2020-11-08 06:47] LABS: GIANT PLATELET OCCASIONAL; PLATELET MORPHOLOGY COMMENT ABNORMAL (NORMAL)
[2020-11-08] MEDS: DIFLUCAN 100 MG IV (MIX by PHARMACY)* 100 MG/50 ML BAG IV SCH (08:47)
[2020-11-08] MEDS: LASIX IVP SCH ×3 (08:49→16:29)
[2020-11-08] MEDS: NYSTATIN POWDER TOP SCH ×2 (09:30→22:06)
[2020-11-08] MEDS: LEVAQUIN PREMIX IV 750 MG 750 MG/150 ML BAG IV SCH (11:23)
[2020-11-08] MEDS ORDERED: KETALAR ONE (11:56)
[2020-11-08] MEDS ORDERED: FENTANYL INJ 100 mcg ONE (11:56)
--- NOTE | 2020-11-08 12:54 | PCM.PROG ---
Progress Note Progress Note for Day of Date of Exam: 11/08/20 Subjective Subjective: Patient seen at bedside, no overnight events. Patient resting in bed with no signs of discomfort. She is currently on 5L NC with sats between 87-93%. Patient appears to have no respiratory distress. Denies SOB or cough. She states her leg swelling and redness is a lot better. She has been admitted for CHF exacerbation, LE chronic stasis necrotic ulcer and pneumonia. She was taken to the OR yesterday for I&D of the right leg wound but noted to have low O2 sats into the 60-70s so was taken back to her room and placed on BiPAP. As per staff, patient was not in any distress and was communicating normally during that time. Labs: Plt 135 Hgb 14.3 WBC 7.2 BUN/Cr: 34/1.54 BNP 863 CRP 163 AB.31/60/71/30 on 5L ECHO: EF 65%, severe pulmonary HTN, increased right sided pressures CXR: bilateral opacities, small pleural effusions, no significant change Wound Cx: ACINETOBACTER BAUMANII/HAEMOLY Plan: follow up recommendations as per Dr. Reyna, he plans to take her to the OR today for I&D of the right leg wound. Continue IV antibiotics, will DC Vancomycin due to cultures not growing MRSA. Continue IV lasix 20 mg BID. Continue IS. Continue local wound care, turn every 2 hr. Wean O2 as tolerated. Continue duonebs. Strict I/Os, monitor urine output. Monitor AM labs/imaging. PT/OT as tolerated. Past Medical Family Social History Past Med/Fam/Surg Hx: No changes since H&P Allergies: Allergies ceftriaxone [From Rocephin] Allergy (Verified 03/26/19 10:56) Penicillins Allergy (Verified 03/26/19 10:56) Review of Systems ROS: No change since H&P Vital Signs and I&O's Vital Signs: Temperature 98.3 F Pulse Rate [Brachial] 90 Pulse Rate 90 Respiratory Rate 18 Blood Pressure [Left Calf] 114/77 Blood Pressure [Right Arm] 104/65 Blood Pressure 118/56 O2 Sat by Pulse Oximetry 93 Intake and Output: Intake & Output 11/05/20 11/06/20 11/07/20 11/08/20 23:59 23:59 23:59 23:59 Intake Total 1092 / 1092 2042 / 2042 0 / 0 Output Total 1350 / 1350 905 / 905 350 / 350 Balance -258 / -258 1137 / 1137 -350 / -350 Physical Exam Oriented: Normal Eyes: Normal Ear: Normal Nose: Normal Throat: Normal Respiratory: Generalized and Diminished Cardiovascular: Edema (RLE 3+ PITTING EDEMA ) : Normal Auscultation: Bowel Sounds: Normal Tenderness: Normal Skin: Tender and Wound (right leg ) Musculoskeletal: Right, Leg, Swelling and Tender Psychiatric: Normal Mood Description: Calm Affect: Normal Speech Pattern: Clear and Appropriate Laboratory and Diagnostics Result Diagrams: 11/08/20 05:40 11/08/20 05:40 Labs: 11/06/20 09:26 Blood Blood Culture - Preliminary 11/06/20 09:00 Blood Blood Culture - Preliminary 11/05/20 21:56 Leg - Right Wound Gram Stain - Final 11/05/20 21:56 Leg - Right Wound Culture - Preliminary Acinetobacter Baumanii/Haemoly Laboratory WBC 7.2 X10^3/uL (3.6-10.0) 11/08/20 05:40 RBC 4.32 X10^6/uL (3.5-5.4) 11/08/20 05:40 Hgb 14.3 g/dL (12.0-16.0) 11/08/20 05:40 Hct 44.2 % (36.0-47.0) 11/08/20 05:40 MCV 102.2 fL (80.0-100.0) H 11/08/20 05:40 MCH 33.2 pg (27.0-34.0) 11/08/20 05:40 MCHC 32.4 g/dL (33.0-35.0) L 11/08/20 05:40 RDW 14.5 % (11.6-16.5) 11/08/20 05:40 Plt Count 135 X10^3/uL (150.0-450.0) L 11/08/20 05:40 Plt Count Comment Decreased (ADEQUATE) A 11/08/20 05:40 MPV 10.5 fL (7.4-11.0) 11/08/20 05:40 Neut % (Auto) 79.4 % (42.0-75.0) H 11/08/20 05:40 Lymph % (Auto) 11.5 % (21.0-51.0) L 11/08/20 05:40 [place] % (Auto) 7.8 % (0.0-13.0) 11/08/20 05:40 Eos % (Auto) 1.1 % (0.9-2.9) 11/08/20 05:40 Baso % (Auto) 0.2 % (0.2-1.0) 11/08/20 05:40 Neut # (Auto) 5.7 x10^3/uL (2.2-4.8) H 11/08/20 05:40 Lymph # (Auto) 0.8 X10^3/uL (1.3-2.9) L 11/08/20 05:40 [place] # (Auto) 0.6 x10^3/uL (0.3-0.8) 11/08/20 05:40 Eos # (Auto) 0.1 x10^3/uL (0.0-0.2) 11/08/20 05:40 Baso # (Auto) 0.0 X10^3/uL (0.0-0.1) 11/08/20 05:40 Absolute Nucleated RBC 0.6 /100WBC 11/08/20 05:40 Giant Platelets Occasional 11/08/20 05:40 Plt Morphology Comment Abnormal (NORMAL) A 11/08/20 05:40 RBC Morphology Normal (NORMAL) 11/08/20 05:40 Sample Site Lra 11/08/20 05:39 ABG pH 7.310 (7.35-7.45) L 11/08/20 05:39 ABG pCO2 60.0 mmHg (35.0-45.0) H* 11/08/20 05:39 ABG pO2 71.0 mmHg (80.0-100.0) L 11/08/20 05:39 ABG HCO3 30.2 mmol/L (22-26) H* 11/08/20 05:39 ABG O2 Saturation 92.0 % (90-100) 11/08/20 05:39 ABG Base Excess 2.6 mmol/L (-2.0-2.0) H 11/08/20 05:39 Trino Test Pos 11/08/20 05:39 A-a Gradient 139.0 mmHg 11/08/20 05:39 FiO2 40.0 11/08/20 05:39 Blood Gas Comments Froy well mts 11/08/20 05:39 Sodium 140 mmol/L (136-145) 11/08/20 05:40 Corrected Sodium TNP 11/08/20 05:40 Potassium 4.1 mmol/L (3.5-5.1) 11/08/20 05:40 Chloride 104 mmol/L (98-107) 11/08/20 05:40 Carbon Dioxide 30.7 mmol/L (21-32) 11/08/20 05:40 BUN 34 mg/dL (7-18) H 11/08/20 05:40 Creatinine 1.54 mg/dL (0.55-1.02) H 11/08/20 05:40 Est GFR (MDRD) Af Amer 44 (>60) L 11/08/20 05:40 Est GFR (MDRD) Non-Af 37 (>60) L 11/08/20 05:40 Glucose 84 mg/dL (65-99) 11/08/20 05:40 Lactic Acid 1.6 mmol/L (0.4-2.0) 11/06/20 09:00 Calcium 8.5 mg/dL (8.5-10.1) 11/08/20 05:40 Corrected Calcium 9.8 mg/dL (8.5-10.1) 11/08/20 05:40 Magnesium 1.7 mg/dL (1.7-2.9) 11/06/20 05:37 Total Bilirubin 1.30 mg/dL (0.2-1.0) H 11/08/20 05:40 AST 159 Units/L (15-37) H 11/08/20 05:40 ALT 40 Units/L (12-78) 11/08/20 05:40 Alkaline Phosphatase 94 Units/L (46-116) 11/08/20 05:40 Creatine Kinase 308 Units/L (26-192) H 11/05/20 21:25 CK-MB (CK-2) 3.1 ng/mL (0-4.0) 11/05/20 21:25 CK/CKMB % Calc 1.0 % (<4) 11/05/20 21:25 Troponin I 0.02 ng/mL (0-1.5) 11/05/20 21:25 C-Reactive Protein 163.70 mg/L (0-3.0) H 11/08/20 05:40 B-Natriuretic Peptide 863 pg/mL (0-79) H* 11/08/20 05:40 Total Protein 6.9 g/dL (6.4-8.2) 11/08/20 05:40 Albumin 2.4 g/dL (3.4-5.0) L 11/08/20 05:40 Globulin 4.5 g/dL (2.5-4.5) 11/08/20 05:40 Albumin/Globulin Ratio 0.5 Ratio (1.1-2.1) L 11/08/20 05:40 Specimen Type Catherized urine 11/06/20 00:19 Urine Color Mya (YELLOW) 11/06/20 00:19 Urine Appearance Clear (CLEAR) 11/06/20 00:19 Urine pH 5.0 (5.0 - 8.0) 11/06/20 00:19 Ur Specific [place] 1.015 (1.000-1.030) 11/06/20 00:19 Urine Protein 3+ (NEGATIVE) 11/06/20 00:19 Urine Glucose (UA) Negative (NEGATIVE) 11/06/20 00: Urine Ketones 1+ (NEGATIVE) 11/06/20 00: Urine Occult Blood 3+ (NEGATIVE) 11/06/20 00: Urine Nitrite Negative (NEGATIVE) 11/06/20 00: Urine Bilirubin 2+ (NEGATIVE) 11/06/20 00:19 Urine Urobilinogen 3+ (NORMAL) 11/06/20 00:19 Ur Leukocyte Esterase 1+ (NEGATIVE) 11/06/20 00:19 Urine RBC 3-5 /HPF (0-3) A 11/06/20 00: Urine WBC 0-2 /HPF (0-5) 11/06/20 00:19 Ur Squamous Epith Cells Rare /HPF (NEGATIVE) 11/06/20 00:19 Urine Bacteria Negative /HPF (NEGATIVE) 11/06/20 00:19 Hyaline Casts Many /LPF (NEGATIVE) 11/06/20 00: Urine Mucus Few /HPF (NEGATIVE) 11/06/20 00:19 Ur Culture Indicated? No/not indicated 11/06/20 00:19 SARS-CoV-2 (PCR) Negative (NEGATIVE) 11/05/20 22:21 Influenza Type A (PCR) Negative (NEGATIVE) 11/05/20 22:21 Influenza Type B (PCR) Negative (NEGATIVE) 11/05/20 22:21 RSV (PCR) Negative (NEGATIVE) 11/05/20 22:21 Plan (1) Lower extremity cellulitis: Status: Acute Qualifiers: Laterality: right Qualified Code(s): L03.115 - Cellulitis of right lower limb (2) Wound of lower extremity: Status: Acute Qualifiers: Encounter type: initial encounter Laterality: right Qualified Code(s): S81.801A - Unspecified open wound, right lower leg, initial encounter (3) Venous ulcer of right leg: Status: Acute (4) Pneumonia: Status: Acute Qualifiers: Pneumonia type: due to unspecified organism Laterality: bilateral Lung location: unspecified part of lung Qualified Code(s): J18.9 - Pneumonia, unspecified organism (5) Obesity: Status: Acute Qualifiers: Obesity classification: adult class 3 (BMI >= 40) Serious obesity comorbidity presence: without serious comorbidity Body mass index: BMI 50.0-5 9.9 Obesity type: unspecified obesity type Qualified Code(s): E66.01 - Morbid (severe) obesity due to excess calories; Z68.43 - Body mass index [BMI] 50.0- 59.9, adult (6) Acute exacerbation of CHF (congestive heart failure): Status: Acute Qualifiers: Heart failure type: right-sided Qualified Code(s): I50.813 - Acute on chronic right heart failure (7) Acute respiratory failure with hypoxia and hypercapnia: Status: Acute (8) Hypoventilation associated with obesity syndrome: Status: Acute (9) Hx of breast cancer: Status: Acute
[2020-11-08] MEDS ORDERED: BETADINE SOLN ONE (13:08)
[2020-11-08] MEDS ORDERED: NS 1000 ML 1,000 ML ONE (13:36)
[2020-11-08] MEDS ORDERED: XYLOCAINE 1 % (PLAIN) ONE (13:47)
[2020-11-08] MEDS ORDERED: POLYMYXIN B SULFATE ONE (13:56)
[2020-11-08] MEDS: DUONEB 0.5 MG/3 MG (3 mL) NEB SCH ×2 (15:16→20:16)
[2020-11-08] MEDS: NYSTATIN CREAM TOP SCH (22:05)
[2020-11-09] MEDS: MORPHINE SULFATE INJ 4 MG IVP PRN ×2 (01:27→12:19)
[2020-11-09] MEDS: DUONEB 0.5 MG/3 MG (3 mL) NEB SCH ×3 (05:08→21:07)
[2020-11-09 06:43] LABS: BASOPHILS % (AUTO) 0.6 % (0.2-1.0); EOSINOPHILS # (AUTO) 0.1 x10^3/uL (0.0-0.2); EOSINOPHILS % (AUTO) 1.3 % (0.9-2.9); HEMATOCRIT 44.7 % (36.0-47.0); HEMOGLOBIN 14.8 g/dL (12.0-16.0); LYMPHOCYTES # (AUTO) 0.7 X10^3/uL (1.3-2.9); LYMPHOCYTES % (AUTO) 9.3 % (21.0-51.0); MEAN CORPUSCULAR HEMOGLOBIN 33.6 pg (27.0-34.0); MEAN CORPUSCULAR VOLUME 101.8 fL (80.0-100.0); MEAN PLATELET VOLUME 9.6 fL (7.4-11.0); MONOCYTES # (AUTO) 0.5 x10^3/uL (0.3-0.8); MONOCYTES % (AUTO) 7.8 % (0.0-13.0); NEUTROPHILS # (AUTO) 5.7 x10^3/uL (2.2-4.8); PLATELET COUNT 127 X10^3/uL (150.0-450.0); RED BLOOD COUNT 4.39 X10^6/uL (3.5-5.4); RED CELL DISTRIBUTION WIDTH 14.6 % (11.6-16.5)
[2020-11-09 07:14] LABS: ALANINE AMINOTRANSFERASE 87 Units/L (12-78); ALBUMIN 2.3 g/dL (3.4-5.0); ALKALINE PHOSPHATASE 101 Units/L (46-116); ASPARTATE AMINO TRANSFERASE 290 Units/L (15-37); BLOOD UREA NITROGEN 31 mg/dL (7-18); CALCIUM 8.6 mg/dL (8.5-10.1); CREATININE 1.32 mg/dL (0.55-1.02); TOTAL PROTEIN 6.9 g/dL (6.4-8.2); eGFR NON BLACK RACES 44 (>60)
[2020-11-09 07:29] LABS: CHLORIDE 101 mmol/L (98-107); SODIUM 139 mmol/L (136-145)
[2020-11-09] MEDS: LASIX IVP SCH ×2 (09:29→18:34)
[2020-11-09] MEDS: NYSTATIN POWDER TOP SCH ×2 (09:30→21:10)
[2020-11-09] MEDS: NYSTATIN CREAM TOP SCH ×2 (09:30→21:10)
[2020-11-09] MEDS: LEVAQUIN PREMIX IV 750 MG 750 MG/150 ML BAG IV SCH (09:30)
--- NOTE | 2020-11-09 09:36 | PCM.PROG ---
Progress Note Progress Note for Day of Date of Exam: 11/09/20 Subjective Subjective: Patient seen at bedside, no overnight events. Patient resting in bed with no signs of discomfort. She is currently on room air and denies SOB. Patient appears to have no respiratory distress. She had I&D done yesterday in the OR for right lower leg necrotic ulcer. Patient tolerated the procedure well. Patient's wound has been draining a lot, dressing appears wet/moist. Wound Cx were collected yesterday. Patient's leg swelling and redness has improved. She denies N/V/D, eating well. Labs: Plt 127 Hgb 14.8 WBC 7 BUN/Cr: 31/1.32 AST/ALT: 290/87 ECHO: EF 65%, severe pulmonary HTN, increased right sided pressures CXR: bilateral opacities, small pleural effusions, no significant change Wound Cx: ACINETOBACTER BAUMANII/HAEMOLY Plan: follow up recommendations as per Dr. Reyna, continue dressing changes and wound care. Continue IV antibiotics, follow Cx. Continue IV lasix 20 mg BID. Continue IS. Continue local wound care, turn every 2 hr. Wean O2 as tolerated. Continue duonebs. Strict I/Os, monitor urine output. Monitor AM labs/imaging. PT/OT as tolerated. Past Medical Family Social History Past Med/Fam/Surg Hx: No changes since H&P Allergies: Allergies ceftriaxone [From Rocephin] Allergy (Verified 03/26/19 10:56) Penicillins Allergy (Verified 03/26/19 10:56) Review of Systems ROS: No change since H&P Vital Signs and I&O's Vital Signs: Temperature 98.5 F Pulse Rate [Brachial] 96 Pulse Rate 78 Respiratory Rate 20 Blood Pressure [Left Calf] 99/67 Blood Pressure [Right Arm] 97/63 Blood Pressure 118/56 O2 Sat by Pulse Oximetry 88 Intake and Output: Intake & Output 11/06/20 11/07/20 11/08/20 11/09/20 23:59 23:59 23:59 23:59 Intake Total 1092 / 1092 2042 / 2042 522 / 522 650 / 650 Output Total 1350 / 1350 905 / 905 1660 / 1660 220 / 220 Balance -258 / -258 1137 / 1137 -1138 / -1138 430 / 430 Physical Exam Oriented: Normal Eyes: Normal Ear: Normal Nose: Normal Throat: Normal Respiratory: Generalized and Diminished Cardiovascular: Edema (B/L LE edema, worse on the right ) Auscultation: Bowel Sounds: Normal Tenderness: Normal Skin: Tender and Wound (right lower leg necrotic ulcer with serosanguinous drainage, surrounding erythema, mild tenderness ) Musculoskeletal: Right, Leg, Swelling and Tender Psychiatric: Normal Mood Description: Calm Affect: Normal Speech Pattern: Clear and Appropriate Laboratory and Diagnostics Result Diagrams: 11/09/20 06:10 11/09/20 06:10 Labs: 11/05/20 21:56 Leg - Right Wound Gram Stain - Final 11/05/20 21:56 Leg - Right Wound Culture - Final Acinetobacter Baumanii/Haemoly Staphylococcus Aureus 11/08/20 13:56 Leg - Right Wound Gram Stain - Final 11/06/20 09:26 Blood Blood Culture - Preliminary 11/06/20 09:00 Blood Blood Culture - Preliminary Laboratory WBC 7.0 X10^3/uL (3.6-10.0) 11/09/20 06:10 RBC 4.39 X10^6/uL (3.5-5.4) 11/09/20 06:10 Hgb 14.8 g/dL (12.0-16.0) 11/09/20 06:10 Hct 44.7 % (36.0-47.0) 11/09/20 06:10 MCV 101.8 fL (80.0-100.0) H 11/09/20 06:10 MCH 33.6 pg (27.0-34.0) 11/09/20 06:10 MCHC 33.0 g/dL (33.0-35.0) 11/09/20 06:10 RDW 14.6 % (11.6-16.5) 11/09/20 06:10 Plt Count 127 X10^3/uL (150.0-450.0) L 11/09/20 06:10 Plt Count Comment Decreased (ADEQUATE) A 11/08/20 05:40 MPV 9.6 fL (7.4-11.0) 11/09/20 06:10 Neut % (Auto) 81.0 % (42.0-75.0) H 11/09/20 06:10 Lymph % (Auto) 9.3 % (21.0-51.0) L 11/09/20 06:10 [place] % (Auto) 7.8 % (0.0-13.0) 11/09/20 06:10 Eos % (Auto) 1.3 % (0.9-2.9) 11/09/20 06:10 Baso % (Auto) 0.6 % (0.2-1.0) 11/09/20 06:10 Neut # (Auto) 5.7 x10^3/uL (2.2-4.8) H 11/09/20 06:10 Lymph # (Auto) 0.7 X10^3/uL (1.3-2.9) L 11/09/20 06:10 [place] # (Auto) 0.5 x10^3/uL (0.3-0.8) 11/09/20 06:10 Eos # (Auto) 0.1 x10^3/uL (0.0-0.2) 11/09/20 06:10 Baso # (Auto) 0.0 X10^3/uL (0.0-0.1) 11/09/20 06:10 Absolute Nucleated RBC 0.3 /100WBC 11/09/20 06:10 Giant Platelets Occasional 11/08/20 05:40 Plt Morphology Comment Abnormal (NORMAL) A 11/08/20 05:40 RBC Morphology Normal (NORMAL) 11/08/20 05:40 Sample Site Lra 11/08/20 05:39 ABG pH 7.310 (7.35-7.45) L 11/08/20 05:39 ABG pCO2 60.0 mmHg (35.0-45.0) H* 11/08/20 05:39 ABG pO2 71.0 mmHg (80.0-100.0) L 11/08/20 05:39 ABG HCO3 30.2 mmol/L (22-26) H* 11/08/20 05:39 ABG O2 Saturation 92.0 % (90-100) 11/08/20 05:39 ABG Base Excess 2.6 mmol/L (-2.0-2.0) H 11/08/20 05:39 Trino Test Pos 11/08/20 05:39 A-a Gradient 139.0 mmHg 11/08/20 05:39 FiO2 40.0 11/08/20 05:39 Blood Gas Comments Froy well mts 11/08/20 05:39 Sodium 139 mmol/L (136-145) 11/09/20 06:10 Corrected Sodium TNP 11/09/20 06:10 Potassium 3.9 mmol/L (3.5-5.1) 11/09/20 06:10 Chloride 101 mmol/L (98-107) 11/09/20 06:10 Carbon Dioxide 33.0 mmol/L (21-32) H 11/09/20 06:10 BUN 31 mg/dL (7-18) H 11/09/20 06:10 Creatinine 1.32 mg/dL (0.55-1.02) H 11/09/20 06:10 Est GFR (MDRD) Af Amer 53 (>60) L 11/09/20 06:10 Est GFR (MDRD) Non-Af 44 (>60) L 11/09/20 06:10 Glucose 93 mg/dL (65-99) 11/09/20 06:10 Lactic Acid 1.6 mmol/L (0.4-2.0) 11/06/20 09:00 Calcium 8.6 mg/dL (8.5-10.1) 11/09/20 06:10 Corrected Calcium 10.0 mg/dL (8.5-10.1) 11/09/20 06:10 Magnesium 1.7 mg/dL (1.7-2.9) 11/06/20 05:37 Total Bilirubin 1.20 mg/dL (0.2-1.0) H 11/09/20 06:10 AST 290 Units/L (15-37) H 11/09/20 06:10 ALT 87 Units/L (12-78) H 11/09/20 06:10 Alkaline Phosphatase 101 Units/L (46-116) 11/09/20 06:10 Creatine Kinase 308 Units/L (26-192) H 11/05/20 21:25 CK-MB (CK-2) 3.1 ng/mL (0-4.0) 11/05/20 21:25 CK/CKMB % Calc 1.0 % (<4) 11/05/20 21:25 Troponin I 0.02 ng/mL (0-1.5) 11/05/20 21:25 C-Reactive Protein 163.70 mg/L (0-3.0) H 11/08/20 05:40 B-Natriuretic Peptide 863 pg/mL (0-79) H* 11/08/20 05:40 Total Protein 6.9 g/dL (6.4-8.2) 11/09/20 06:10 Albumin 2.3 g/dL (3.4-5.0) L 11/09/20 06:10 Globulin 4.6 g/dL (2.5-4.5) H 11/09/20 06:10 Albumin/Globulin Ratio 0.5 Ratio (1.1-2.1) L 11/09/20 06:10 Specimen Type Catherized urine 11/06/20 00:19 Urine Color Mya (YELLOW) 11/06/20 00:19 Urine Appearance Clear (CLEAR) 11/06/20 00:19 Urine pH 5.0 (5.0 - 8.0) 11/06/20 00:19 Ur Specific [place] 1.015 (1.000-1.030) 11/06/20 00:19 Urine Protein 3+ (NEGATIVE) 11/06/20 00:19 Urine Glucose (UA) Negative (NEGATIVE) 11/06/20 00:19 Urine Ketones 1+ (NEGATIVE) 11/06/20 00: Urine Occult Blood 3+ (NEGATIVE) 11/06/20 00:19 Urine Nitrite Negative (NEGATIVE) 11/06/20 00:19 Urine Bilirubin 2+ (NEGATIVE) 11/06/20 00:19 Urine Urobilinogen 3+ (NORMAL) 11/06/20 00:19 Ur Leukocyte Esterase 1+ (NEGATIVE) 11/06/20 00:19 Urine RBC 3-5 /HPF (0-3) A 11/06/20 00:19 Urine WBC 0-2 /HPF (0-5) 11/06/20 00:19 Ur Squamous Epith Cells Rare /HPF (NEGATIVE) 11/06/20 00:19 Urine Bacteria Negative /HPF (NEGATIVE) 11/06/20 00:19 Hyaline Casts Many /LPF (NEGATIVE) 11/06/20 00:19 Urine Mucus Few /HPF (NEGATIVE) 11/06/20 00:19 Ur Culture Indicated? No/not indicated 11/06/20 00:19 SARS-CoV-2 (PCR) Negative (NEGATIVE) 11/05/20 22:21 Influenza Type A (PCR) Negative (NEGATIVE) 11/05/20 22:21 Influenza Type B (PCR) Negative (NEGATIVE) 11/05/20 22:21 RSV (PCR) Negative (NEGATIVE) 11/05/20 22:21 Tissue Pathology To follow 11/08/20 14:09 Plan (1) Lower extremity cellulitis: Status: Acute Qualifiers: Laterality: right Qualified Code(s): L03.115 - Cellulitis of right lower limb (2) Wound of lower extremity: Status: Acute Qualifiers: Encounter type: initial encounter Laterality: right Qualified Code(s): S81.801A - Unspecified open wound, right lower leg, initial encounter (3) Venous ulcer of right leg: Status: Acute (4) Pneumonia: Status: Acute Qualifiers: Laterality: bilateral Lung location: unspecified part of lung Pneumonia type: due to unspecified organism Qualified Code(s): J18.9 - Pneumonia, unspecified organism (5) Obesity: Status: Acute Qualifiers: Body mass index: BMI 50.0-59.9 Obesity classification: adult class 3 (BMI >= 40) Obesity type: unspecified obesity type Serious obesity comorbidity presence: without serious comorbidity Qualified Code(s): E66.01 - Morbid (severe) obesity due to excess calories; Z68.43 - Body mass index [BMI] 50.0- 59.9, adult (6) Acute exacerbation of CHF (congestive heart failure): Status: Acute Qualifiers: Heart failure type: right-sided Qualified Code(s): I50.813 - Acute on chronic right heart failure (7) Acute respiratory failure with hypoxia and hypercapnia: Status: Acute (8) Hypoventilation associated with obesity syndrome: Status: Acute (9) Hx of breast cancer: Status: Acute
[2020-11-09] MEDS ORDERED: PHARMACY COMMENT IV NR (11:30)
[2020-11-09] MEDS: DIFLUCAN 100 MG IV (MIX by PHARMACY)* 100 MG/50 ML BAG IV SCH (11:40)
--- NOTE | 2020-11-09 18:07 | DR.PROGNOT ---
Hospital Progress Notes - Progress Note for Day of: Progress Note Date: 11/09/20 - Chief Complaint Chief Complaint: dressing was wet . had to be changed . packing was replaced . the ulcer looks fairly healthy . no necrosis or abscess formation . cellulitis is much better . - Past Medical Family Social History Past Med/Fam/Surg Hx: No changes since H&P Allergies: Allergies ceftriaxone [From Rocephin] Allergy (Verified 03/26/19 10:56) Penicillins Allergy (Verified 03/26/19 10:56) - Review Of Systems ROS: No change since H&P - Vital Signs Vital Signs: Temperature 98.2 F Pulse Rate [Brachial] 97 Pulse Rate 78 Respiratory Rate 14 Blood Pressure [Left Calf] 99/67 Blood Pressure [Right Arm] 107/70 Blood Pressure 118/56 O2 Sat by Pulse Oximetry 83 - Physical Exam Oriented: Normal Eyes: Normal Ear: Normal Nose: Normal Throat: Normal Respiratory: Generalized, Diminished Cardiovascular: Edema (B/L LE edema, worse on the right) : Normal GI:Auscultation: Normal GI:Palpation: Normal GI: Tenderness: Normal Skin: Tender, Wound (se above 9 x 6 cm ulcer lateral RT lower leg above the ankle ) Musculoskeletal: Right, Leg, Swelling, Tender Psychiatric: Normal Mood Description: Calm Affect: Normal Speech Pattern: Clear, Appropriate - Laboratory and Diagnostics Result Diagrams: 11/09/20 06:10 11/09/20 06:10 Labs: 11/08/20 13:56 Leg - Right Wound Gram Stain - Final 11/08/20 13:56 Leg - Right Wound Culture - Preliminary 11/05/20 21:56 Leg - Right Wound Gram Stain - Final 11/05/20 21:56 Leg - Right Wound Culture - Final Acinetobacter Baumanii/Haemoly Staphylococcus Aureus 11/06/20 09:26 Blood Blood Culture - Preliminary 11/06/20 09:00 Blood Blood Culture - Preliminary Laboratory WBC 7.0 X10^3/uL (3.6-10.0) 11/09/20 06:10 RBC 4.39 X10^6/uL (3.5-5.4) 11/09/20 06:10 Hgb 14.8 g/dL (12.0-16.0) 11/09/20 06:10 Hct 44.7 % (36.0-47.0) 11/09/20 06:10 MCV 101.8 fL (80.0-100.0) H 11/09/20 06:10 MCH 33.6 pg (27.0-34.0) 11/09/20 06:10 MCHC 33.0 g/dL (33.0-35.0) 11/09/20 06:10 RDW 14.6 % (11.6-16.5) 11/09/20 06:10 Plt Count 127 X10^3/uL (150.0-450.0) L 11/09/20 06:10 Plt Count Comment Decreased (ADEQUATE) A 11/08/20 05:40 MPV 9.6 fL (7.4-11.0) 11/09/20 06:10 Neut % (Auto) 81.0 % (42.0-75.0) H 11/09/20 06:10 Lymph % (Auto) 9.3 % (21.0-51.0) L 11/09/20 06:10 [place] % (Auto) 7.8 % (0.0-13.0) 11/09/20 06:10 Eos % (Auto) 1.3 % (0.9-2.9) 11/09/20 06:10 Baso % (Auto) 0.6 % (0.2-1.0) 11/09/20 06:10 Neut # (Auto) 5.7 x10^3/uL (2.2-4.8) H 11/09/20 06:10 Lymph # (Auto) 0.7 X10^3/uL (1.3-2.9) L 11/09/20 06:10 [place] # (Auto) 0.5 x10^3/uL (0.3-0.8) 11/09/20 06:10 Eos # (Auto) 0.1 x10^3/uL (0.0-0.2) 11/09/20 06:10 Baso # (Auto) 0.0 X10^3/uL (0.0-0.1) 11/09/20 06:10 Absolute Nucleated RBC 0.3 /100WBC 11/09/20 06:10 Giant Platelets Occasional 11/08/20 05:40 Plt Morphology Comment Abnormal (NORMAL) A 11/08/20 05:40 RBC Morphology Normal (NORMAL) 11/08/20 05:40 Sample Site Lra 11/08/20 05:39 ABG pH 7.310 (7.35-7.45) L 11/08/20 05:39 ABG pCO2 60.0 mmHg (35.0-45.0) H* 11/08/20 05:39 ABG pO2 71.0 mmHg (80.0-100.0) L 11/08/20 05:39 ABG HCO3 30.2 mmol/L (22-26) H* 11/08/20 05:39 ABG O2 Saturation 92.0 % (90-100) 11/08/20 05:39 ABG Base Excess 2.6 mmol/L (-2.0-2.0) H 11/08/20 05:39 Trino Test Pos 11/08/20 05:39 A-a Gradient 139.0 mmHg 11/08/20 05:39 FiO2 40.0 11/08/20 05:39 Blood Gas Comments Froy well mts 11/08/20 05:39 Sodium 139 mmol/L (136-145) 11/09/20 06:10 Corrected Sodium TNP 11/09/20 06:10 Potassium 3.9 mmol/L (3.5-5.1) 11/09/20 06:10 Chloride 101 mmol/L (98-107) 11/09/20 06:10 Carbon Dioxide 33.0 mmol/L (21-32) H 11/09/20 06:10 BUN 31 mg/dL (7-18) H 11/09/20 06:10 Creatinine 1.32 mg/dL (0.55-1.02) H 11/09/20 06:10 Est GFR (MDRD) Af Amer 53 (>60) L 11/09/20 06:10 Est GFR (MDRD) Non-Af 44 (>60) L 11/09/20 06:10 Glucose 93 mg/dL (65-99) 11/09/20 06:10 Lactic Acid 1.6 mmol/L (0.4-2.0) 11/06/20 09:00 Calcium 8.6 mg/dL (8.5-10.1) 11/09/20 06:10 Corrected Calcium 10.0 mg/dL (8.5-10.1) 11/09/20 06:10 Magnesium 1.7 mg/dL (1.7-2.9) 11/06/20 05:37 Total Bilirubin 1.20 mg/dL (0.2-1.0) H 11/09/20 06:10 AST 290 Units/L (15-37) H 11/09/20 06:10 ALT 87 Units/L (12-78) H 11/09/20 06:10 Alkaline Phosphatase 101 Units/L (46-116) 11/09/20 06:10 Creatine Kinase 308 Units/L (26-192) H 11/05/20 21:25 CK-MB (CK-2) 3.1 ng/mL (0-4.0) 11/05/20 21:25 CK/CKMB % Calc 1.0 % (<4) 11/05/20 21:25 Troponin I 0.02 ng/mL (0-1.5) 11/05/20 21:25 C-Reactive Protein 163.70 mg/L (0-3.0) H 11/08/20 05:40 B-Natriuretic Peptide 863 pg/mL (0-79) H* 11/08/20 05:40 Total Protein 6.9 g/dL (6.4-8.2) 11/09/20 06:10 Albumin 2.3 g/dL (3.4-5.0) L 11/09/20 06:10 Globulin 4.6 g/dL (2.5-4.5) H 11/09/20 06:10 Albumin/Globulin Ratio 0.5 Ratio (1.1-2.1) L 11/09/20 06:10 Specimen Type Catherized urine 11/06/20 00:19 Urine Color Mya (YELLOW) 11/06/20 00:19 Urine Appearance Clear (CLEAR) 11/06/20 00:19 Urine pH 5.0 (5.0 - 8.0) 11/06/20 00:19 Ur Specific [place] 1.015 (1.000-1.030) 11/06/20 00:19 Urine Protein 3+ (NEGATIVE) 11/06/20 00:19 Urine Glucose (UA) Negative (NEGATIVE) 11/06/20 00:19 Urine Ketones 1+ (NEGATIVE) 11/06/20 00: Urine Occult Blood 3+ (NEGATIVE) 11/06/20 00:19 Urine Nitrite Negative (NEGATIVE) 11/06/20 00:19 Urine Bilirubin 2+ (NEGATIVE) 11/06/20 00:19 Urine Urobilinogen 3+ (NORMAL) 11/06/20 00:19 Ur Leukocyte Esterase 1+ (NEGATIVE) 11/06/20 00:19 Urine RBC 3-5 /HPF (0-3) A 11/06/20 00:19 Urine WBC 0-2 /HPF (0-5) 11/06/20 00:19 Ur Squamous Epith Cells Rare /HPF (NEGATIVE) 11/06/20 00:19 Urine Bacteria Negative /HPF (NEGATIVE) 11/06/20 00:19 Hyaline Casts Many /LPF (NEGATIVE) 11/06/20 00:19 Urine Mucus Few /HPF (NEGATIVE) 11/06/20 00:19 Ur Culture Indicated? No/not indicated 11/06/20 00:19 SARS-CoV-2 (PCR) Negative (NEGATIVE) 11/05/20 22:21 Influenza Type A (PCR) Negative (NEGATIVE) 11/05/20 22:21 Influenza Type B (PCR) Negative (NEGATIVE) 11/05/20 22:21 RSV (PCR) Negative (NEGATIVE) 11/05/20 22:21 Tissue Pathology To follow 11/08/20 14:09 - Assessment and Plan 1: large ulcer RT lower extremity ( venous type ). subsiding cellulitis . chronic leg edema . to keep the leg elevated . wound vac early next week - Problem Patient Problems: Patient Problems Lower extremity cellulitis (Acute) L03.119 Wound of lower extremity (Acute) S81.359M
[2020-11-10] MEDS: DUONEB 0.5 MG/3 MG (3 mL) NEB SCH ×3 (05:20→21:34)
[2020-11-10 06:00] LABS: BASOPHILS % (AUTO) 0.2 % (0.2-1.0); EOSINOPHILS # (AUTO) 0.1 x10^3/uL (0.0-0.2); HEMATOCRIT 44.1 % (36.0-47.0); HEMOGLOBIN 14.6 g/dL (12.0-16.0); LYMPHOCYTES # (AUTO) 0.6 X10^3/uL (1.3-2.9); LYMPHOCYTES % (AUTO) 9.5 % (21.0-51.0); MEAN CORPUSCULAR HEMOGLOBIN 33.2 pg (27.0-34.0); MEAN CORPUSCULAR HGB CONC 33.1 g/dL (33.0-35.0); MEAN CORPUSCULAR VOLUME 100.6 fL (80.0-100.0); MEAN PLATELET VOLUME 9.5 fL (7.4-11.0); MONOCYTES # (AUTO) 0.5 x10^3/uL (0.3-0.8); MONOCYTES % (AUTO) 7.6 % (0.0-13.0); NEUTROPHILS # (AUTO) 5.3 x10^3/uL (2.2-4.8); NEUTROPHILS % (AUTO) 81.7 % (42.0-75.0); PLATELET COUNT 120 X10^3/uL (150.0-450.0); RED BLOOD COUNT 4.38 X10^6/uL (3.5-5.4); RED CELL DISTRIBUTION WIDTH 14.7 % (11.6-16.5); WHITE BLOOD COUNT 6.5 X10^3/uL (3.6-10.0)
[2020-11-10 06:10] LABS: ALANINE AMINOTRANSFERASE 62 Units/L (12-78); ALBUMIN 2.3 g/dL (3.4-5.0); ALKALINE PHOSPHATASE 97 Units/L (46-116); ASPARTATE AMINO TRANSFERASE 131 Units/L (15-37); BLOOD UREA NITROGEN 28 mg/dL (7-18); CALCIUM 8.3 mg/dL (8.5-10.1); CARBON DIOXIDE 32.9 mmol/L (21-32); CHLORIDE 100 mmol/L (98-107); COR CA(FOR HYPOALB) 9.7 mg/dL (8.5-10.1); CREATININE 1.16 mg/dL (0.55-1.02); SODIUM 139 mmol/L (136-145); TOTAL PROTEIN 6.7 g/dL (6.4-8.2); eGFR NON BLACK RACES 51 (>60)
[2020-11-10 06:48] LABS: PLATELET MORPHOLOGY COMMENT NORMAL (NORMAL)
[2020-11-10] MEDS: LEVAQUIN PREMIX IV 750 MG 750 MG/150 ML BAG IV SCH (08:47)
[2020-11-10] MEDS: LASIX IVP SCH ×2 (08:47→17:56)
[2020-11-10] MEDS: ULTRAM PO PRN (09:01)
[2020-11-10] MEDS: NYSTATIN CREAM TOP SCH ×2 (09:03→21:23)
[2020-11-10] MEDS: NYSTATIN POWDER TOP SCH ×2 (09:03→21:24)
--- NOTE | 2020-11-10 11:40 | PCM.PROG ---
Progress Note Progress Note for Day of Date of Exam: 11/10/20 Subjective Subjective: Patient seen at bedside, no overnight events. Patient states she is doing well. Yesterday evening, she was noted to be more drowsy and sats in the low 80s. Patient had received Morphine prior to that and she stated today that morphine makes her really drowsy and she does not tolerate it well. She also was found not to be wearing her oxygen at the time. She is currently on 5L with sats between 88-91%. She is in no respiratory distress and able to have a conversation without labored breathing. She has been afebrile with normal WBC. Dr. Reyna is managing the right leg wound. He plans to place a wound vac sometime early next week. Patient states there has been less drainage from her wound. Labs: Plt 120 Hgb 14.6 WBC 6.5 BUN/Cr: 28/1.18 AST/ALT trending down D-dimer elevated ECHO: EF 65%, severe pulmonary HTN, increased right sided pressures CXR: bilateral opacities, small pleural effusions, no significant change Wound Cx: ACINETOBACTER BAUMANII/HAEMOLY Repeat wound Cx: Gram + cocci and Gram - rods. Plan: Will get CTA to rule out PE as patient is high risk due to hx of breast cancer and recent immobility. Follow up recommendations as per Dr. Reyna, continue dressing changes and wound care. Continue IV antibiotics, follow Cx. Continue IV lasix 20 mg BID. Morphine was stopped yesterday, continue tramadol prn. Patient reports her pain has been fairly controlled. Continue IS. Continue local wound care, turn every 2 hr. Wean O2 as tolerated. Continue duonebs. Strict I/Os, monitor urine output. Continue DVT ppx with Lovenox. Monitor AM labs/imaging. PT/OT as tolerated. Past Medical Family Social History Past Med/Fam/Surg Hx: No changes since H&P Allergies: Allergies ceftriaxone [From Rocephin] Allergy (Verified 03/26/19 10:56) Penicillins Allergy (Verified 03/26/19 10:56) Review of Systems ROS: No change since H&P Vital Signs and I&O's Vital Signs: Temperature 98.7 F Pulse Rate [Brachial] 92 Pulse Rate 91 Respiratory Rate 16 Blood Pressure [Left Calf] 116/71 Blood Pressure [Right Arm] 100/59 Blood Pressure 118/56 O2 Sat by Pulse Oximetry 92 Intake and Output: Intake & Output 11/07/20 11/08/20 11/09/20 11/10/20 23:59 23:59 23:59 23:59 Intake Total 2041 522 / 522 1590 / 1590 850 / 850 Output Total 905 / 905 1660 / 1660 2019 / 2019 700 / 700 Balance 1137 / 1137 -1138 / -1138 -430 / -430 150 / 150 Physical Exam Oriented: Normal Eyes: Normal Ear: Normal Nose: Normal Throat: Normal Respiratory: Generalized and Diminished Cardiovascular: Edema (B/L LE edema, worse on the right ) Auscultation: Bowel Sounds: Normal Tenderness: Normal Skin: Tender and Wound (se above 9 x 6 cm ulcer lateral RT lower leg above the ankle ) Musculoskeletal: Right, Leg, Swelling and Tender Psychiatric: Normal Mood Description: Calm Affect: Normal Speech Pattern: Clear and Appropriate Laboratory and Diagnostics Result Diagrams: 11/10/20 05:20 11/10/20 05:20 Labs: 11/08/20 13:56 Leg - Right Wound Gram Stain - Final 11/08/20 13:56 Leg - Right Wound Culture - Preliminary Acinetobacter Baumanii/Haemoly Staphylococcus Aureus 11/05/20 21:56 Leg - Right Wound Gram Stain - Final 11/05/20 21:56 Leg - Right Wound Culture - Final Acinetobacter Baumanii/Haemoly Staphylococcus Aureus 11/06/20 09:26 Blood Blood Culture - Preliminary 11/06/20 09:00 Blood Blood Culture - Preliminary Laboratory WBC 6.5 X10^3/uL (3.6-10.0) 11/10/20 05:20 RBC 4.38 X10^6/uL (3.5-5.4) 11/10/20 05:20 Hgb 14.6 g/dL (12.0-16.0) 11/10/20 05:20 Hct 44.1 % (36.0-47.0) 11/10/20 05:20 MCV 100.6 fL (80.0-100.0) H 11/10/20 05:20 MCH 33.2 pg (27.0-34.0) 11/10/20 05:20 MCHC 33.1 g/dL (33.0-35.0) 11/10/20 05:20 RDW 14.7 % (11.6-16.5) 11/10/20 05:20 Plt Count 120 X10^3/uL (150.0-450.0) L 11/10/20 05:20 Plt Count Comment Decreased (ADEQUATE) A 11/10/20 05:20 MPV 9.5 fL (7.4-11.0) 11/10/20 05:20 Neut % (Auto) 81.7 % (42.0-75.0) H 11/10/20 05:20 Lymph % (Auto) 9.5 % (21.0-51.0) L 11/10/20 05:20 [place] % (Auto) 7.6 % (0.0-13.0) 11/10/20 05:20 Eos % (Auto) 1.0 % (0.9-2.9) 11/10/20 05:20 Baso % (Auto) 0.2 % (0.2-1.0) 11/10/20 05:20 Neut # (Auto) 5.3 x10^3/uL (2.2-4.8) H 11/10/20 05:20 Lymph # (Auto) 0.6 X10^3/uL (1.3-2.9) L 11/10/20 05:20 [place] # (Auto) 0.5 x10^3/uL (0.3-0.8) 11/10/20 05:20 Eos # (Auto) 0.1 x10^3/uL (0.0-0.2) 11/10/20 05:20 Baso # (Auto) 0.0 X10^3/uL (0.0-0.1) 11/10/20 05:20 Absolute Nucleated RBC 0.5 /100WBC 11/10/20 05:20 Giant Platelets Occasional 11/08/20 05:40 Plt Morphology Comment Normal (NORMAL) 11/10/20 05:20 RBC Morphology Normal (NORMAL) 11/10/20 05:20 Sample Site Lra 11/08/20 05:39 ABG pH 7.310 (7.35-7.45) L 11/08/20 05:39 ABG pCO2 60.0 mmHg (35.0-45.0) H* 11/08/20 05:39 ABG pO2 71.0 mmHg (80.0-100.0) L 11/08/20 05:39 ABG HCO3 30.2 mmol/L (22-26) H* 11/08/20 05:39 ABG O2 Saturation 92.0 % (90-100) 11/08/20 05:39 ABG Base Excess 2.6 mmol/L (-2.0-2.0) H 11/08/20 05:39 Trino Test Pos 11/08/20 05:39 A-a Gradient 139.0 mmHg 11/08/20 05:39 FiO2 40.0 11/08/20 05:39 Blood Gas Comments Froy well mts 11/08/20 05:39 Sodium 139 mmol/L (136-145) 11/10/20 05:20 Corrected Sodium TNP 11/10/20 05:20 Potassium 4.0 mmol/L (3.5-5.1) 11/10/20 05:20 Chloride 100 mmol/L (98-107) 11/10/20 05:20 Carbon Dioxide 32.9 mmol/L (21-32) H 11/10/20 05:20 BUN 28 mg/dL (7-18) H 11/10/20 05:20 Creatinine 1.16 mg/dL (0.55-1.02) H 11/10/20 05:20 Est GFR (MDRD) Af Amer > 60 (>60) 11/10/20 05:20 Est GFR (MDRD) Non-Af 51 (>60) L 11/10/20 05:20 Glucose 90 mg/dL (65-99) 11/10/20 05:20 Lactic Acid 1.6 mmol/L (0.4-2.0) 11/06/20 09:00 Calcium 8.3 mg/dL (8.5-10.1) L 11/10/20 05:20 Corrected Calcium 9.7 mg/dL (8.5-10.1) 11/10/20 05:20 Magnesium 1.7 mg/dL (1.7-2.9) 11/06/20 05:37 Total Bilirubin 1.20 mg/dL (0.2-1.0) H 11/10/20 05:20 AST 131 Units/L (15-37) H 11/10/20 05:20 ALT 62 Units/L (12-78) 11/10/20 05:20 Alkaline Phosphatase 97 Units/L (46-116) 11/10/20 05:20 Creatine Kinase 308 Units/L (26-192) H 11/05/20 21:25 CK-MB (CK-2) 3.1 ng/mL (0-4.0) 11/05/20 21:25 CK/CKMB % Calc 1.0 % (<4) 11/05/20 21:25 Troponin I 0.02 ng/mL (0-1.5) 11/05/20 21:25 C-Reactive Protein 163.70 mg/L (0-3.0) H 11/08/20 05:40 B-Natriuretic Peptide 863 pg/mL (0-79) H* 11/08/20 05:40 Total Protein 6.7 g/dL (6.4-8.2) 11/10/20 05:20 Albumin 2.3 g/dL (3.4-5.0) L 11/10/20 05:20 Globulin 4.4 g/dL (2.5-4.5) 11/10/20 05:20 Albumin/Globulin Ratio 0.5 Ratio (1.1-2.1) L 11/10/20 05:20 Specimen Type Catherized urine 11/06/20 00:19 Urine Color Mya (YELLOW) 11/06/20 00:19 Urine Appearance Clear (CLEAR) 11/06/20 00:19 Urine pH 5.0 (5.0 - 8.0) 11/06/20 00:19 Ur Specific [place] 1.015 (1.000-1.030) 11/06/20 00:19 Urine Protein 3+ (NEGATIVE) 11/06/20 00:19 Urine Glucose (UA) Negative (NEGATIVE) 11/06/20 00:19 Urine Ketones 1+ (NEGATIVE) 11/06/20 00: Urine Occult Blood 3+ (NEGATIVE) 11/06/20 00: Urine Nitrite Negative (NEGATIVE) 11/06/20 00:19 Urine Bilirubin 2+ (NEGATIVE) 11/06/20 00:19 Urine Urobilinogen 3+ (NORMAL) 11/06/20 00:19 Ur Leukocyte Esterase 1+ (NEGATIVE) 11/06/20 00:19 Urine RBC 3-5 /HPF (0-3) A 11/06/20 00:19 Urine WBC 0-2 /HPF (0-5) 11/06/20 00:19 Ur Squamous Epith Cells Rare /HPF (NEGATIVE) 11/06/20 00:19 Urine Bacteria Negative /HPF (NEGATIVE) 11/06/20 00:19 Hyaline Casts Many /LPF (NEGATIVE) 11/06/20 00:19 Urine Mucus Few /HPF (NEGATIVE) 11/06/20 00:19 Ur Culture Indicated? No/not indicated 11/06/20 00:19 SARS-CoV-2 (PCR) Negative (NEGATIVE) 11/05/20 22:21 Influenza Type A (PCR) Negative (NEGATIVE) 11/05/20 22:21 Influenza Type B (PCR) Negative (NEGATIVE) 11/05/20 22:21 RSV (PCR) Negative (NEGATIVE) 11/05/20 22:21 Tissue Pathology To follow 11/08/20 14:09 Plan (1) Lower extremity cellulitis: Status: Acute Qualifiers: Laterality: right Qualified Code(s): L03.115 - Cellulitis of right lower limb Plan: CONSULT GENERAL SURGERY, VANCOMYCIN 1.5G IV DAILY, LEVAQUIN 750MG IV DAILY, LASIX 20MG IV BID, MORPHINE 4MG IV Q6H PRN, AND ZOFRAN 4MG IV Q6H PRN. (2) Wound of lower extremity: Status: Acute Qualifiers: Encounter type: initial encounter Laterality: right Qualified Code(s): S81.801A - Unspecified open wound, right lower leg, initial encounter (3) Venous ulcer of right leg: Status: Acute (4) Pneumonia: Status: Acute Qualifiers: Laterality: bilateral Lung location: unspecified part of lung Pneumonia type: due to unspecified organism Qualified Code(s): J18.9 - Pneumonia, unspecified organism (5) Obesity: Status: Acute Qualifiers: Body mass index: BMI 50.0-59.9 Obesity classification: adult class 3 (BMI >= 40) Obesity type: unspecified obesity type Serious obesity comorbidity presence: without serious comorbidity Qualified Code(s): E66.01 - Morbid (severe) obesity due to excess calories; Z68.43 - Body mass index [BMI] 50.0- 59.9, adult (6) Acute exacerbation of CHF (congestive heart failure): Status: Acute Qualifiers: Heart failure type: right-sided Qualified Code(s): I50.813 - Acute on chronic right heart failure (7) Acute respiratory failure with hypoxia and hypercapnia: Status: Acute (8) Hypoventilation associated with obesity syndrome: Status: Acute (9) Hx of breast cancer: Status: Acute
[2020-11-10] MEDS: DIFLUCAN 100 MG IV (MIX by PHARMACY)* 100 MG/50 ML BAG IV SCH (13:21)
[2020-11-10] MEDS ORDERED: NS 100 ML IV 100 ML IV ONE (13:31)
--- NOTE | 2020-11-10 13:56 | DR.PROGNOT ---
Hospital Progress Notes - Progress Note for Day of: Progress Note Date: 11/10/20 - Chief Complaint Chief Complaint: dressing was wet and had to be changed . packing was replaced . the RT leg ulcer looks fairly healthy . no necrosis or abscess formation . cellulitis is much better . - Past Medical Family Social History Past Med/Fam/Surg Hx: No changes since H&P Allergies: Allergies ceftriaxone [From Rocephin] Allergy (Verified 03/26/19 10:56) Penicillins Allergy (Verified 03/26/19 10:56) - Review Of Systems ROS: No change since H&P - Vital Signs Vital Signs: Temperature 98.4 F Pulse Rate [Brachial] 98 Pulse Rate 91 Respiratory Rate 22 Blood Pressure [Left Calf] 112/67 Blood Pressure [Right Arm] 100/59 Blood Pressure 118/56 O2 Sat by Pulse Oximetry 92 - Physical Exam Oriented: Normal Eyes: Normal Ear: Normal Nose: Normal Throat: Normal Respiratory: Generalized, Diminished Cardiovascular: Edema (B/L LE edema, worse on the right) : Normal GI:Auscultation: Normal GI:Palpation: Normal GI: Tenderness: Normal Skin: Tender, Wound (se above 9 x 6 cm ulcer lateral RT lower leg above the ankle) Musculoskeletal: Right, Leg, Swelling, Tender Psychiatric: Normal Mood Description: Calm Affect: Normal Speech Pattern: Clear, Appropriate - Laboratory and Diagnostics Result Diagrams: 11/10/20 05:20 11/10/20 05:20 Labs: 11/08/20 13:56 Leg - Right Wound Gram Stain - Final 11/08/20 13:56 Leg - Right Wound Culture - Preliminary Acinetobacter Baumanii/Haemoly Staphylococcus Aureus 11/05/20 21:56 Leg - Right Wound Gram Stain - Final 11/05/20 21:56 Leg - Right Wound Culture - Final Acinetobacter Baumanii/Haemoly Staphylococcus Aureus 11/06/20 09:26 Blood Blood Culture - Preliminary 11/06/20 09:00 Blood Blood Culture - Preliminary Laboratory WBC 6.5 X10^3/uL (3.6-10.0) 11/10/20 05:20 RBC 4.38 X10^6/uL (3.5-5.4) 11/10/20 05:20 Hgb 14.6 g/dL (12.0-16.0) 11/10/20 05:20 Hct 44.1 % (36.0-47.0) 11/10/20 05:20 MCV 100.6 fL (80.0-100.0) H 11/10/20 05:20 MCH 33.2 pg (27.0-34.0) 11/10/20 05:20 MCHC 33.1 g/dL (33.0-35.0) 11/10/20 05:20 RDW 14.7 % (11.6-16.5) 11/10/20 05:20 Plt Count 120 X10^3/uL (150.0-450.0) L 11/10/20 05:20 Plt Count Comment Decreased (ADEQUATE) A 11/10/20 05:20 MPV 9.5 fL (7.4-11.0) 11/10/20 05:20 Neut % (Auto) 81.7 % (42.0-75.0) H 11/10/20 05:20 Lymph % (Auto) 9.5 % (21.0-51.0) L 11/10/20 05:20 [place] % (Auto) 7.6 % (0.0-13.0) 11/10/20 05:20 Eos % (Auto) 1.0 % (0.9-2.9) 11/10/20 05:20 Baso % (Auto) 0.2 % (0.2-1.0) 11/10/20 05:20 Neut # (Auto) 5.3 x10^3/uL (2.2-4.8) H 11/10/20 05:20 Lymph # (Auto) 0.6 X10^3/uL (1.3-2.9) L 11/10/20 05:20 Harris # (Auto) 0.5 x10^3/uL (0.3-0.8) 11/10/20 05:20 Eos # (Auto) 0.1 x10^3/uL (0.0-0.2) 11/10/20 05:20 Baso # (Auto) 0.0 X10^3/uL (0.0-0.1) 11/10/20 05:20 Absolute Nucleated RBC 0.5 /100WBC 11/10/20 05:20 Giant Platelets Occasional 11/08/20 05:40 Plt Morphology Comment Normal (NORMAL) 11/10/20 05:20 RBC Morphology Normal (NORMAL) 11/10/20 05:20 D-Dimer 2.69 ug/ml (0.0-0.57) H* 11/10/20 11:47 Sample Site Lra 11/08/20 05:39 ABG pH 7.310 (7.35-7.45) L 11/08/20 05:39 ABG pCO2 60.0 mmHg (35.0-45.0) H* 11/08/20 05:39 ABG pO2 71.0 mmHg (80.0-100.0) L 11/08/20 05:39 ABG HCO3 30.2 mmol/L (22-26) H* 11/08/20 05:39 ABG O2 Saturation 92.0 % (90-100) 11/08/20 05:39 ABG Base Excess 2.6 mmol/L (-2.0-2.0) H 11/08/20 05:39 Trino Test Pos 11/08/20 05:39 A-a Gradient 139.0 mmHg 11/08/20 05:39 FiO2 40.0 11/08/20 05:39 Blood Gas Comments Froy well mts 11/08/20 05:39 Sodium 139 mmol/L (136-145) 11/10/20 05:20 Corrected Sodium TNP 11/10/20 05:20 Potassium 4.0 mmol/L (3.5-5.1) 11/10/20 05:20 Chloride 100 mmol/L (98-107) 11/10/20 05:20 Carbon Dioxide 32.9 mmol/L (21-32) H 11/10/20 05:20 BUN 28 mg/dL (7-18) H 11/10/20 05:20 Creatinine 1.16 mg/dL (0.55-1.02) H 11/10/20 05:20 Est GFR (MDRD) Af Amer > 60 (>60) 11/10/20 05:20 Est GFR (MDRD) Non-Af 51 (>60) L 11/10/20 05:20 Glucose 90 mg/dL (65-99) 11/10/20 05:20 Lactic Acid 1.6 mmol/L (0.4-2.0) 11/06/20 09:00 Calcium 8.3 mg/dL (8.5-10.1) L 11/10/20 05:20 Corrected Calcium 9.7 mg/dL (8.5-10.1) 11/10/20 05:20 Magnesium 1.7 mg/dL (1.7-2.9) 11/06/20 05:37 Total Bilirubin 1.20 mg/dL (0.2-1.0) H 11/10/20 05:20 AST 131 Units/L (15-37) H 11/10/20 05:20 ALT 62 Units/L (12-78) 11/10/20 05:20 Alkaline Phosphatase 97 Units/L (46-116) 11/10/20 05:20 Creatine Kinase 308 Units/L (26-192) H 11/05/20 21:25 CK-MB (CK-2) 3.1 ng/mL (0-4.0) 11/05/20 21:25 CK/CKMB % Calc 1.0 % (<4) 11/05/20 21:25 Troponin I 0.02 ng/mL (0-1.5) 11/05/20 21:25 C-Reactive Protein 163.70 mg/L (0-3.0) H 11/08/20 05:40 B-Natriuretic Peptide 863 pg/mL (0-79) H* 11/08/20 05:40 Total Protein 6.7 g/dL (6.4-8.2) 11/10/20 05:20 Albumin 2.3 g/dL (3.4-5.0) L 11/10/20 05:20 Globulin 4.4 g/dL (2.5-4.5) 11/10/20 05:20 Albumin/Globulin Ratio 0.5 Ratio (1.1-2.1) L 11/10/20 05:20 Specimen Type Catherized urine 11/06/20 00:19 Urine Color Mya (YELLOW) 11/06/20 00:19 Urine Appearance Clear (CLEAR) 11/06/20 00:19 Urine pH 5.0 (5.0 - 8.0) 11/06/20 00:19 Ur Specific [place] 1.015 (1.000-1.030) 11/06/20 00:19 Urine Protein 3+ (NEGATIVE) 11/06/20 00:19 Urine Glucose (UA) Negative (NEGATIVE) 11/06/20 00:19 Urine Ketones 1+ (NEGATIVE) 11/06/20 00:19 Urine Occult Blood 3+ (NEGATIVE) 11/06/20 00:19 Urine Nitrite Negative (NEGATIVE) 11/06/20 00:19 Urine Bilirubin 2+ (NEGATIVE) 11/06/20 00:19 Urine Urobilinogen 3+ (NORMAL) 11/06/20 00:19 Ur Leukocyte Esterase 1+ (NEGATIVE) 11/06/20 00:19 Urine RBC 3-5 /HPF (0-3) A 11/06/20 00:19 Urine WBC 0-2 /HPF (0-5) 11/06/20 00:19 Ur Squamous Epith Cells Rare /HPF (NEGATIVE) 11/06/20 00:19 Urine Bacteria Negative /HPF (NEGATIVE) 11/06/20 00:19 Hyaline Casts Many /LPF (NEGATIVE) 11/06/20 00:19 Urine Mucus Few /HPF (NEGATIVE) 11/06/20 00:19 Ur Culture Indicated? No/not indicated 11/06/20 00:19 SARS-CoV-2 (PCR) Negative (NEGATIVE) 11/05/20 22:21 Influenza Type A (PCR) Negative (NEGATIVE) 11/05/20 22:21 Influenza Type B (PCR) Negative (NEGATIVE) 11/05/20 22:21 RSV (PCR) Negative (NEGATIVE) 11/05/20 22:21 Tissue Pathology To follow 11/08/20 14:09 - Assessment and Plan 1: large ulcer RT lower extremity ( venous type ). subsiding cellulitis . chronic leg edema . to keep the leg elevated . IV ATB . wound vac early next week . - Problem Patient Problems: Patient Problems Lower extremity cellulitis (Acute) L03.119 Wound of lower extremity (Acute) S81.682R
--- NOTE | 2020-11-10 14:32 | CT ---
CT angiogram chest with contrastIndication: Dyspnea and elevated D-dimerTECHNIQUEHelical images through the chest after IV contrast. Coronal and sagittal reformats provided. MIP images provided.[email or web address] CT chestFINDINGSLimited images through the upper abdomen demonstrate gallstones in the gallbladder. Subcutaneous soft tissue swelling noted. Reflux of contrast into the hepatic veins noted. Review of bone windows demonstrate mild spine DJD without destructive osseous lesion.Chest: There is cardiomegaly with few aortic arch and branch vessel calcifications. Pulmonary artery bolus timing is adequate, with small filling defects seen in a right lower lobe segmental branch on axial image 84 through 81. Left lower lobe segmental and subsegmental pulmonary artery filling defects seen on axial images 95-100. Tiny filling defects seen in the right main pulmonary artery on axial image 60 through 61.There is no pneumothorax. Shotty mediastinal lymph nodes are again noted, with aortic 0 pulmonary nodes relatively similar to the prior.There is centrilobular COPD change. Small right effusion noted. Dependent atelectatic changes noted.IMPRESSION1. Bilateral segmental and subsegmental lower lobe pulmonary thromboembolic filling defects with a small filling defect also seen in the right main pulmonary artery, probably tracking into a right upper lobe branch.2. Cardiomegaly, with somewhat enlarged right heart and signs of CHF. This may be chronic, given appearance on the prior, but right heart dysfunction excess surveyed by the pulmonary embolic filling defects is not excluded.3. Mediastinal adenopathy is relatively similar to the prior, attention at follow-up recommended.4. Gallstones, COPD, trace right effusion and other findings as above.Electronically signed by: KENNEDY FLOREZ (November 10, 2020 14:29:57)
[2020-11-10] MEDS: LOVENOX INJ 100 MG SYR SC SCH ×2 (15:30→21:27)
[2020-11-10] MEDS: LOVENOX INJ 40 MG SYR SC SCH (21:24)
[2020-11-11] MEDS: DUONEB 0.5 MG/3 MG (3 mL) NEB SCH ×3 (06:00→21:02)
[2020-11-11 06:43] LABS: BASOPHILS % (AUTO) 0.3 % (0.2-1.0); EOSINOPHILS # (AUTO) 0.1 x10^3/uL (0.0-0.2); EOSINOPHILS % (AUTO) 1.4 % (0.9-2.9); HEMATOCRIT 44.4 % (36.0-47.0); LYMPHOCYTES # (AUTO) 0.4 X10^3/uL (1.3-2.9); LYMPHOCYTES % (AUTO) 6.8 % (21.0-51.0); MEAN CORPUSCULAR HEMOGLOBIN 33.9 pg (27.0-34.0); MEAN CORPUSCULAR HGB CONC 33.8 g/dL (33.0-35.0); MEAN CORPUSCULAR VOLUME 100.4 fL (80.0-100.0); MEAN PLATELET VOLUME 10.3 fL (7.4-11.0); MONOCYTES # (AUTO) 0.3 x10^3/uL (0.3-0.8); MONOCYTES % (AUTO) 4.3 % (0.0-13.0); NEUTROPHILS # (AUTO) 5.4 x10^3/uL (2.2-4.8); NEUTROPHILS % (AUTO) 87.2 % (42.0-75.0); PLATELET COUNT 127 X10^3/uL (150.0-450.0); RED BLOOD COUNT 4.42 X10^6/uL (3.5-5.4); RED CELL DISTRIBUTION WIDTH 14.8 % (11.6-16.5); WHITE BLOOD COUNT 6.2 X10^3/uL (3.6-10.0)
[2020-11-11 06:47] LABS: ALANINE AMINOTRANSFERASE 46 Units/L (12-78); ALBUMIN 2.3 g/dL (3.4-5.0); ALKALINE PHOSPHATASE 95 Units/L (46-116); ASPARTATE AMINO TRANSFERASE 68 Units/L (15-37); BLOOD UREA NITROGEN 22 mg/dL (7-18); CALCIUM 8.2 mg/dL (8.5-10.1); CARBON DIOXIDE 33.5 mmol/L (21-32); CHLORIDE 100 mmol/L (98-107); COR CA(FOR HYPOALB) 9.6 mg/dL (8.5-10.1); CREATININE 1.01 mg/dL (0.55-1.02); SODIUM 137 mmol/L (136-145); TOTAL PROTEIN 6.8 g/dL (6.4-8.2); eGFR NON BLACK RACES 60 (>60)
[2020-11-11] MEDS: LOVENOX INJ 40 MG SYR SC SCH ×2 (09:38→20:53)
[2020-11-11] MEDS: DIFLUCAN 100 MG IV (MIX by PHARMACY)* 100 MG/50 ML BAG IV SCH (09:38)
[2020-11-11] MEDS: LASIX IVP SCH ×2 (09:38→17:18)
[2020-11-11] MEDS: NYSTATIN CREAM TOP SCH ×2 (09:39→21:32)
[2020-11-11] MEDS: NYSTATIN POWDER TOP SCH ×2 (09:39→21:32)
[2020-11-11] MEDS: LOVENOX INJ 100 MG SYR SC SCH ×2 (09:39→20:54)
[2020-11-11] MEDS: ULTRAM PO PRN (09:42)
[2020-11-11] MEDS: LEVAQUIN PREMIX IV 750 MG 750 MG/150 ML BAG IV SCH (11:55)
--- NOTE | 2020-11-11 12:55 | DR.PROGNOT ---
Hospital Progress Notes - Progress Note for Day of: Progress Note Date: 11/11/20 - Chief Complaint Chief Complaint: mild SOB .. being treated for PE .no CP or palpitation .. dressing was wet and had to be changed . the RT leg ulcer looks fairly healthy . no necrosis or abscess formation . cellulitis is much better . - Past Medical Family Social History Past Med/Fam/Surg Hx: No changes since H&P Allergies: Allergies ceftriaxone [From Rocephin] Allergy (Verified 03/26/19 10:56) Penicillins Allergy (Verified 03/26/19 10:56) - Review Of Systems ROS: No change since H&P - Vital Signs Vital Signs: Temperature 98.3 F Pulse Rate [Brachial] 88 Pulse Rate 91 Respiratory Rate 18 Blood Pressure [Left Calf] 105/56 Blood Pressure [Right Arm] 108/61 Blood Pressure 118/56 O2 Sat by Pulse Oximetry 91 - Physical Exam Oriented: Normal Eyes: Normal Ear: Normal Nose: Normal Throat: Normal Respiratory: Generalized, Diminished Cardiovascular: Edema (B/L LE edema, worse on the right) : Normal GI:Auscultation: Normal GI:Palpation: Normal GI: Tenderness: Normal Skin: Tender, Wound (se above 9 x 6 cm ulcer lateral RT lower leg above the ankle) Musculoskeletal: Right, Leg, Swelling, Tender Psychiatric: Normal Mood Description: Calm Affect: Normal Speech Pattern: Clear, Appropriate - Laboratory and Diagnostics Result Diagrams: 11/11/20 05:44 11/11/20 05:44 Labs: 11/06/20 09:00 Blood Blood Culture - Final 11/06/20 09:26 Blood Blood Culture - Final 11/08/20 13:56 Leg - Right Wound Gram Stain - Final 11/08/20 13:56 Leg - Right Wound Culture - Final Acinetobacter Baumanii/Haemoly Staphylococcus Aureus Strep Agalactiae - (Group B) 11/05/20 21:56 Leg - Right Wound Gram Stain - Final 11/05/20 21:56 Leg - Right Wound Culture - Final Acinetobacter Baumanii/Haemoly Staphylococcus Aureus Laboratory WBC 6.2 X10^3/uL (3.6-10.0) 11/11/20 05:44 RBC 4.42 X10^6/uL (3.5-5.4) 11/11/20 05:44 Hgb 15.0 g/dL (12.0-16.0) 11/11/20 05:44 Hct 44.4 % (36.0-47.0) 11/11/20 05:44 MCV 100.4 fL (80.0-100.0) H 11/11/20 05:44 MCH 33.9 pg (27.0-34.0) 11/11/20 05:44 MCHC 33.8 g/dL (33.0-35.0) 11/11/20 05:44 RDW 14.8 % (11.6-16.5) 11/11/20 05:44 Plt Count 127 X10^3/uL (150.0-450.0) L 11/11/20 05:44 Plt Count Comment Decreased (ADEQUATE) A 11/10/20 05:20 MPV 10.3 fL (7.4-11.0) 11/11/20 05:44 Neut % (Auto) 87.2 % (42.0-75.0) H 11/11/20 05:44 Lymph % (Auto) 6.8 % (21.0-51.0) L 11/11/20 05:44 [place] % (Auto) 4.3 % (0.0-13.0) 11/11/20 05:44 Eos % (Auto) 1.4 % (0.9-2.9) 11/11/20 05:44 Baso % (Auto) 0.3 % (0.2-1.0) 11/11/20 05:44 Neut # (Auto) 5.4 x10^3/uL (2.2-4.8) H 11/11/20 05:44 Lymph # (Auto) 0.4 X10^3/uL (1.3-2.9) L 11/11/20 05:44 [place] # (Auto) 0.3 x10^3/uL (0.3-0.8) 11/11/20 05:44 Eos # (Auto) 0.1 x10^3/uL (0.0-0.2) 11/11/20 05:44 Baso # (Auto) 0.0 X10^3/uL (0.0-0.1) 11/11/20 05:44 Absolute Nucleated RBC 0.3 /100WBC 11/11/20 05:44 Giant Platelets Occasional 11/08/20 05:40 Plt Morphology Comment Normal (NORMAL) 11/10/20 05:20 RBC Morphology Normal (NORMAL) 11/10/20 05:20 D-Dimer 2.69 ug/ml (0.0-0.57) H* 11/10/20 11:47 Sample Site Lra 11/08/20 05:39 ABG pH 7.310 (7.35-7.45) L 11/08/20 05:39 ABG pCO2 60.0 mmHg (35.0-45.0) H* 11/08/20 05:39 ABG pO2 71.0 mmHg (80.0-100.0) L 11/08/20 05:39 ABG HCO3 30.2 mmol/L (22-26) H* 11/08/20 05:39 ABG O2 Saturation 92.0 % (90-100) 11/08/20 05:39 ABG Base Excess 2.6 mmol/L (-2.0-2.0) H 11/08/20 05:39 Trino Test Pos 11/08/20 05:39 A-a Gradient 139.0 mmHg 11/08/20 05:39 FiO2 40.0 11/08/20 05:39 Blood Gas Comments Froy well mts 11/08/20 05:39 Sodium 137 mmol/L (136-145) 11/11/20 05:44 Corrected Sodium TNP 11/11/20 05:44 Potassium 4.6 mmol/L (3.5-5.1) 11/11/20 05:44 Chloride 100 mmol/L (98-107) 11/11/20 05:44 Carbon Dioxide 33.5 mmol/L (21-32) H 11/11/20 05:44 BUN 22 mg/dL (7-18) H 11/11/20 05:44 Creatinine 1.01 mg/dL (0.55-1.02) 11/11/20 05:44 Est GFR (MDRD) Af Amer > 60 (>60) 11/11/20 05:44 Est GFR (MDRD) Non-Af 60 (>60) 11/11/20 05:44 Glucose 85 mg/dL (65-99) 11/11/20 05:44 Lactic Acid 1.6 mmol/L (0.4-2.0) 11/06/20 09:00 Calcium 8.2 mg/dL (8.5-10.1) L 11/11/20 05:44 Corrected Calcium 9.6 mg/dL (8.5-10.1) 11/11/20 05:44 Magnesium 1.7 mg/dL (1.7-2.9) 11/06/20 05:37 Iron 51 ug/dL (50-175) 11/11/20 10:33 Transferrin 183 mg/dL (202-364) L 11/11/20 10:33 Ferritin 270 ng/mL (8-252) H 11/11/20 10:33 Total Bilirubin 1.20 mg/dL (0.2-1.0) H 11/11/20 05:44 AST 68 Units/L (15-37) H 11/11/20 05:44 ALT 46 Units/L (12-78) 11/11/20 05:44 Alkaline Phosphatase 95 Units/L (46-116) 11/11/20 05:44 Creatine Kinase 308 Units/L (26-192) H 11/05/20 21:25 CK-MB (CK-2) 3.1 ng/mL (0-4.0) 11/05/20 21:25 CK/CKMB % Calc 1.0 % (<4) 11/05/20 21:25 Troponin I 0.02 ng/mL (0-1.5) 11/05/20 21:25 C-Reactive Protein 163.70 mg/L (0-3.0) H 11/08/20 05:40 B-Natriuretic Peptide 863 pg/mL (0-79) H* 11/08/20 05:40 Total Protein 6.8 g/dL (6.4-8.2) 11/11/20 05:44 Albumin 2.3 g/dL (3.4-5.0) L 11/11/20 05:44 Globulin 4.5 g/dL (2.5-4.5) 11/11/20 05:44 Albumin/Globulin Ratio 0.5 Ratio (1.1-2.1) L 11/11/20 05:44 Vitamin B12 1503 pg/mL (193-986) H 11/11/20 10:33 Folate 8.0 ng/mL (>8.6) L 11/11/20 10:33 Specimen Type Catherized urine 11/06/20 00:19 Urine Color Mya (YELLOW) 11/06/20 00:19 Urine Appearance Clear (CLEAR) 11/06/20 00:19 Urine pH 5.0 (5.0 - 8.0) 11/06/20 00:19 Ur Specific [place] 1.015 (1.000-1.030) 11/06/20 00:19 Urine Protein 3+ (NEGATIVE) 11/06/20 00:19 Urine Glucose (UA) Negative (NEGATIVE) 11/06/20 00:19 Urine Ketones 1+ (NEGATIVE) 11/06/20 00:19 Urine Occult Blood 3+ (NEGATIVE) 11/06/20 00:19 Urine Nitrite Negative (NEGATIVE) 11/06/20 00:19 Urine Bilirubin 2+ (NEGATIVE) 11/06/20 00:19 Urine Urobilinogen 3+ (NORMAL) 11/06/20 00:19 Ur Leukocyte Esterase 1+ (NEGATIVE) 11/06/20 00:19 Urine RBC 3-5 /HPF (0-3) A 11/06/20 00:19 Urine WBC 0-2 /HPF (0-5) 11/06/20 00:19 Ur Squamous Epith Cells Rare /HPF (NEGATIVE) 11/06/20 00:19 Urine Bacteria Negative /HPF (NEGATIVE) 11/06/20 00:19 Hyaline Casts Many /LPF (NEGATIVE) 11/06/20 00:19 Urine Mucus Few /HPF (NEGATIVE) 11/06/20 00:19 Ur Culture Indicated? No/not indicated 11/06/20 00:19 SARS-CoV-2 (PCR) Negative (NEGATIVE) 11/05/20 22:21 Influenza Type A (PCR) Negative (NEGATIVE) 11/05/20 22:21 Influenza Type B (PCR) Negative (NEGATIVE) 11/05/20 22:21 RSV (PCR) Negative (NEGATIVE) 11/05/20 22:21 Tissue Pathology To follow 11/08/20 14:09 - Assessment and Plan 1: PE on Anti coagulants . large ulcer RT lower extremity ( venous type ). subsiding cellulitis . chronic leg edema . to keep the leg elevated . IV ATB . wound vac early next week . 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
[2020-11-11] MEDS: FOLIC ACID TAB 1 MG PO SCH (14:24)
[2020-11-12] MEDS: DUONEB 0.5 MG/3 MG (3 mL) NEB SCH ×3 (05:15→21:16)
[2020-11-12] MEDS: ULTRAM PO PRN ×2 (07:02→20:13)
[2020-11-12] MEDS: LOVENOX INJ 40 MG SYR SC SCH (08:25)
[2020-11-12] MEDS: LOVENOX INJ 100 MG SYR SC SCH (08:25)
[2020-11-12] MEDS: DIFLUCAN 100 MG IV (MIX by PHARMACY)* 100 MG/50 ML BAG IV SCH (08:26)
[2020-11-12] MEDS: LEVAQUIN PREMIX IV 750 MG 750 MG/150 ML BAG IV SCH (08:27)
[2020-11-12] MEDS: LASIX IVP SCH ×2 (08:27→17:16)
[2020-11-12] MEDS: FOLIC ACID TAB 1 MG PO SCH (08:27)
[2020-11-12] MEDS: NYSTATIN CREAM TOP SCH ×2 (08:28→20:18)
[2020-11-12] MEDS: NYSTATIN POWDER TOP SCH ×2 (08:29→20:54)
[2020-11-12] MEDS: ELIQUIS PO SCH ×2 (11:05→20:13)
[2020-11-13] MEDS: DUONEB 0.5 MG/3 MG (3 mL) NEB SCH ×3 (05:19→21:35)
[2020-11-13] MEDS: ULTRAM PO PRN ×3 (06:24→18:01)
[2020-11-13] MEDS: LEVAQUIN PREMIX IV 750 MG 750 MG/150 ML BAG IV SCH (08:26)
[2020-11-13] MEDS: FOLIC ACID TAB 1 MG PO SCH (08:27)
[2020-11-13] MEDS: ELIQUIS PO SCH ×2 (08:27→21:29)
[2020-11-13] MEDS: LASIX IVP SCH (08:27)
[2020-11-13] MEDS: NYSTATIN CREAM TOP SCH ×2 (08:28→21:30)
[2020-11-13] MEDS: NYSTATIN POWDER TOP SCH ×2 (08:28→21:30)
[2020-11-13 08:39] LABS: BASOPHILS % (AUTO) 0.3 % (0.2-1.0); EOSINOPHILS # (AUTO) 0.2 x10^3/uL (0.0-0.2); EOSINOPHILS % (AUTO) 3.1 % (0.9-2.9); HEMATOCRIT 43.4 % (36.0-47.0); HEMOGLOBIN 14.7 g/dL (12.0-16.0); LYMPHOCYTES # (AUTO) 0.5 X10^3/uL (1.3-2.9); LYMPHOCYTES % (AUTO) 9.7 % (21.0-51.0); MEAN CORPUSCULAR HEMOGLOBIN 33.9 pg (27.0-34.0); MEAN CORPUSCULAR HGB CONC 33.9 g/dL (33.0-35.0); MEAN CORPUSCULAR VOLUME 100.1 fL (80.0-100.0); MEAN PLATELET VOLUME 9.2 fL (7.4-11.0); MONOCYTES # (AUTO) 0.3 x10^3/uL (0.3-0.8); MONOCYTES % (AUTO) 6.2 % (0.0-13.0); NEUTROPHILS # (AUTO) 4.1 x10^3/uL (2.2-4.8); NEUTROPHILS % (AUTO) 80.7 % (42.0-75.0); PLATELET COUNT 125 X10^3/uL (150.0-450.0); RED BLOOD COUNT 4.33 X10^6/uL (3.5-5.4); RED CELL DISTRIBUTION WIDTH 14.9 % (11.6-16.5)
--- NOTE | 2020-11-13 08:47 | PCM.PROG ---
Progress Note Progress Note for Day of Date of Exam: 11/13/20 Subjective Subjective: Patient seen at bedside, no overnight events. Patient states she is doing ok. She is being treated for CHF exacerbation, acute respiratory failure due to pneumonia and right leg necrotic ulcer s/p I&D. On exam, patient was not wearing her oxygen. She appears in no respiratory distress. Denies fever or chills. Denies cough. Patient is also being followed by Dr. Reyna (Surgery) and plan is to place a wound vac soon. Patient was switched from Lovenox to Eliquis yesterday. Denies any bleeding. Plan: will repeat labs today BMP and CBC. Discontinue nation cath. Patient stated that she is able to get up and ambulate to the bathroom. She has not worked with PT/OT much. Follow Dr. Reyna's recommendations. Continue IV antibiotics. Switch IV lasix to PO. Continue Eliquis. Continue tramadol prn. Continue PT/OT as tolerated. Continue IS. Continue local wound care, turn every 2 hr. Wean O2 as t olerated. Continue duonebs. Monitor AM labs/imaging. Past Medical Family Social History Past Med/Fam/Surg Hx: No changes since H&P Allergies: Allergies ceftriaxone [From Rocephin] Allergy (Verified 03/26/19 10:56) Penicillins Allergy (Verified 03/26/19 10:56) Review of Systems ROS: No change since H&P Vital Signs and I&O's Vital Signs: Temperature 98.4 F Pulse Rate [Brachial] 88 Pulse Rate 93 Respiratory Rate 16 Blood Pressure [Left Calf] 105/56 Blood Pressure [Right Arm] 107/63 Blood Pressure 118/56 O2 Sat by Pulse Oximetry 92 Intake and Output: Intake & Output 11/10/20 11/11/20 11/12/20 11/13/20 23:59 23:59 23:59 23:59 Intake Total 1538 / 1538 1402 / 1402 1380 / 1380 235 / 235 Output Total 1880 / 1880 2600 / 2600 1800 / 1800 175 / 175 Balance -342 / -342 -1198 / -1198 -420 / -420 60 / 60 Physical Exam Oriented: Normal Eyes: Normal Ear: Normal Nose: Normal Throat: Normal Respiratory: Generalized and Diminished Cardiovascular: Edema (B/L LE edema, improved significantly ) Auscultation: Bowel Sounds: Normal Tenderness: Normal Skin: Tender and Wound (se above 9 x 6 cm ulcer lateral RT lower leg above the ankle, surrounding erythema improved ) Musculoskeletal: Right, Leg, Swelling and Tender Psychiatric: Normal Mood Description: Calm Affect: Normal Speech Pattern: Clear and Appropriate Laboratory and Diagnostics Result Diagrams: 11/13/20 08:24 11/13/20 08:24 Labs: 11/06/20 09:00 Blood Blood Culture - Final 11/06/20 09:26 Blood Blood Culture - Final 11/08/20 13:56 Leg - Right Wound Gram Stain - Final 11/08/20 13:56 Leg - Right Wound Culture - Final Acinetobacter Baumanii/Haemoly Staphylococcus Aureus Strep Agalactiae - (Group B) 11/05/20 21:56 Leg - Right Wound Gram Stain - Final 11/05/20 21:56 Leg - Right Wound Culture - Final Acinetobacter Baumanii/Haemoly Staphylococcus Aureus Laboratory WBC 6.2 X10^3/uL (3.6-10.0) 11/11/20 05:44 RBC 4.42 X10^6/uL (3.5-5.4) 11/11/20 05:44 Hgb 15.0 g/dL (12.0-16.0) 11/11/20 05:44 Hct 44.4 % (36.0-47.0) 11/11/20 05:44 MCV 100.4 fL (80.0-100.0) H 11/11/20 05:44 MCH 33.9 pg (27.0-34.0) 11/11/20 05:44 MCHC 33.8 g/dL (33.0-35.0) 11/11/20 05:44 RDW 14.8 % (11.6-16.5) 11/11/20 05:44 Plt Count 127 X10^3/uL (150.0-450.0) L 11/11/20 05:44 Plt Count Comment Decreased (ADEQUATE) A 11/10/20 05:20 MPV 10.3 fL (7.4-11.0) 11/11/20 05:44 Neut % (Auto) 87.2 % (42.0-75.0) H 11/11/20 05:44 Lymph % (Auto) 6.8 % (21.0-51.0) L 11/11/20 05:44 [place] % (Auto) 4.3 % (0.0-13.0) 11/11/20 05:44 Eos % (Auto) 1.4 % (0.9-2.9) 11/11/20 05:44 Baso % (Auto) 0.3 % (0.2-1.0) 11/11/20 05:44 Neut # (Auto) 5.4 x10^3/uL (2.2-4.8) H 11/11/20 05:44 Lymph # (Auto) 0.4 X10^3/uL (1.3-2.9) L 11/11/20 05:44 [place] # (Auto) 0.3 x10^3/uL (0.3-0.8) 11/11/20 05:44 Eos # (Auto) 0.1 x10^3/uL (0.0-0.2) 11/11/20 05:44 Baso # (Auto) 0.0 X10^3/uL (0.0-0.1) 11/11/20 05:44 Absolute Nucleated RBC 0.3 /100WBC 11/11/20 05:44 Giant Platelets Occasional 11/08/20 05:40 Plt Morphology Comment Normal (NORMAL) 11/10/20 05:20 RBC Morphology Normal (NORMAL) 11/10/20 05:20 D-Dimer 2.69 ug/ml (0.0-0.57) H* 11/10/20 11:47 Sample Site Lra 11/08/20 05:39 ABG pH 7.310 (7.35-7.45) L 11/08/20 05:39 ABG pCO2 60.0 mmHg (35.0-45.0) H* 11/08/20 05:39 ABG pO2 71.0 mmHg (80.0-100.0) L 11/08/20 05:39 ABG HCO3 30.2 mmol/L (22-26) H* 11/08/20 05:39 ABG O2 Saturation 92.0 % (90-100) 11/08/20 05:39 ABG Base Excess 2.6 mmol/L (-2.0-2.0) H 11/08/20 05:39 Trino Test Pos 11/08/20 05:39 A-a Gradient 139.0 mmHg 11/08/20 05:39 FiO2 40.0 11/08/20 05:39 Blood Gas Comments Froy well mts 11/08/20 05:39 Sodium 137 mmol/L (136-145) 11/11/20 05:44 Corrected Sodium TNP 11/11/20 05:44 Potassium 4.6 mmol/L (3.5-5.1) 11/11/20 05:44 Chloride 100 mmol/L (98-107) 11/11/20 05:44 Carbon Dioxide 33.5 mmol/L (21-32) H 11/11/20 05:44 BUN 22 mg/dL (7-18) H 11/11/20 05:44 Creatinine 1.01 mg/dL (0.55-1.02) 11/11/20 05:44 Est GFR (MDRD) Af Amer > 60 (>60) 11/11/20 05:44 Est GFR (MDRD) Non-Af 60 (>60) 11/11/20 05:44 Glucose 85 mg/dL (65-99) 11/11/20 05:44 Lactic Acid 1.6 mmol/L (0.4-2.0) 11/06/20 09:00 Calcium 8.2 mg/dL (8.5-10.1) L 11/11/20 05:44 Corrected Calcium 9.6 mg/dL (8.5-10.1) 11/11/20 05:44 Magnesium 1.7 mg/dL (1.7-2.9) 11/06/20 05:37 Iron 51 ug/dL (50-175) 11/11/20 10:33 Transferrin 183 mg/dL (202-364) L 11/11/20 10:33 Ferritin 270 ng/mL (8-252) H 11/11/20 10:33 Total Bilirubin 1.20 mg/dL (0.2-1.0) H 11/11/20 05:44 AST 68 Units/L (15-37) H 11/11/20 05:44 ALT 46 Units/L (12-78) 11/11/20 05:44 Alkaline Phosphatase 95 Units/L (46-116) 11/11/20 05:44 Creatine Kinase 308 Units/L (26-192) H 11/05/20 21:25 CK-MB (CK-2) 3.1 ng/mL (0-4.0) 11/05/20 21:25 CK/CKMB % Calc 1.0 % (<4) 11/05/20 21:25 Troponin I 0.02 ng/mL (0-1.5) 11/05/20 21:25 C-Reactive Protein 163.70 mg/L (0-3.0) H 11/08/20 05:40 B-Natriuretic Peptide 863 pg/mL (0-79) H* 11/08/20 05:40 Total Protein 6.8 g/dL (6.4-8.2) 11/11/20 05:44 Albumin 2.3 g/dL (3.4-5.0) L 11/11/20 05:44 Globulin 4.5 g/dL (2.5-4.5) 11/11/20 05:44 Albumin/Globulin Ratio 0.5 Ratio (1.1-2.1) L 11/11/20 05:44 Vitamin B12 1503 pg/mL (193-986) H 11/11/20 10:33 Folate 8.0 ng/mL (>8.6) L 11/11/20 10:33 Specimen Type Catherized urine 11/06/20 00:19 Urine Color Mya (YELLOW) 11/06/20 00:19 Urine Appearance Clear (CLEAR) 11/06/20 00:19 Urine pH 5.0 (5.0 - 8.0) 11/06/20 00:19 Ur Specific [place] 1.015 (1.000-1.030) 11/06/20 00:19 Urine Protein 3+ (NEGATIVE) 11/06/20 00:19 Urine Glucose (UA) Negative (NEGATIVE) 11/06/20 00: Urine Ketones 1+ (NEGATIVE) 11/06/20 00:19 Urine Occult Blood 3+ (NEGATIVE) 11/06/20 00: Urine Nitrite Negative (NEGATIVE) 11/06/20 00:19 Urine Bilirubin 2+ (NEGATIVE) 11/06/20 00:19 Urine Urobilinogen 3+ (NORMAL) 11/06/20 00:19 Ur Leukocyte Esterase 1+ (NEGATIVE) 11/06/20 00:19 Urine RBC 3-5 /HPF (0-3) A 11/06/20 00:19 Urine WBC 0-2 /HPF (0-5) 11/06/20 00:19 Ur Squamous Epith Cells Rare /HPF (NEGATIVE) 11/06/20 00:19 Urine Bacteria Negative /HPF (NEGATIVE) 11/06/20 00:19 Hyaline Casts Many /LPF (NEGATIVE) 11/06/20 00:19 Urine Mucus Few /HPF (NEGATIVE) 11/06/20 00:19 Ur Culture Indicated? No/not indicated 11/06/20 00:19 SARS-CoV-2 (PCR) Negative (NEGATIVE) 11/05/20 22:21 Influenza Type A (PCR) Negative (NEGATIVE) 11/05/20 22:21 Influenza Type B (PCR) Negative (NEGATIVE) 11/05/20 22:21 RSV (PCR) Negative (NEGATIVE) 11/05/20 22:21 Tissue Pathology To follow 11/08/20 14:09 Plan (1) Pulmonary embolism: Status: Acute Qualifiers: Acute cor pulmonale presence: unspecified Chronicity: acute Pulmonary embolism type: unspecified Qualified Code(s): I26.99 - Other pulmonary embolism without acute cor pulmonale (2) Lower extremity cellulitis: Status: Acute Qualifiers: Laterality: right Qualified Code(s): L03.115 - Cellulitis of right lower limb Plan: CONSULT GENERAL SURGERY, VANCOMYCIN 1.5G IV DAILY, LEVAQUIN 750MG IV DAILY, LASIX 20MG IV BID, MORPHINE 4MG IV Q6H PRN, AND ZOFRAN 4MG IV Q6H PRN. (3) Wound of lower extremity: Status: Acute Qualifiers: Encounter type: initial encounter Laterality: right Qualified Code(s): S81.801A - Unspecified open wound, right lower leg, initial encounter (4) Venous ulcer of right leg: Status: Acute (5) Pneumonia: Status: Acute Qualifiers: Laterality: bilateral Lung location: unspecified part of lung Pneumonia type: due to unspecified organism Qualified Code(s): J18.9 - Pneumonia, unspecified organism (6) Obesity: Status: Acute Qualifiers: Body mass index: BMI 50.0-59.9 Obesity classification: adult class 3 (BMI >= 40) Obesity type: unspecified obesity type Serious obesity comorbidity presence: without serious comorbidity Qualified Code(s): E66.01 - Morbid (severe) obesity due to excess calories; Z68.43 - Body mass index [BMI] 50.0- 59.9, adult (7) Acute exacerbation of CHF (congestive heart failure): Status: Acute Qualifiers: Heart failure type: right-sided Qualified Code(s): I50.813 - Acute on chronic right heart failure (8) Acute respiratory failure with hypoxia and hypercapnia: Status: Acute (9) Hypoventilation associated with obesity syndrome: Status: Acute (10) Hx of breast cancer: Status: Acute
[2020-11-13 08:51] LABS: BLOOD UREA NITROGEN 19 mg/dL (7-18); CALCIUM 8.4 mg/dL (8.5-10.1); CARBON DIOXIDE 34.4 mmol/L (21-32); CHLORIDE 100 mmol/L (98-107); SODIUM 138 mmol/L (136-145); eGFR NON BLACK RACES > 60 (>60)
[2020-11-13] MEDS ORDERED: LASIX PO SCH (09:00)
[2020-11-13] MEDS: DIFLUCAN 100 MG IV (MIX by PHARMACY)* 100 MG/50 ML BAG IV SCH (11:00)
[2020-11-13] MEDS: LASIX PO SCH (17:25)
[2020-11-14] MEDS: ULTRAM PO PRN ×2 (04:07→19:34)
[2020-11-14] MEDS: DUONEB 0.5 MG/3 MG (3 mL) NEB SCH ×3 (05:25→22:00)
[2020-11-14 05:57] LABS: BASOPHILS % (AUTO) 0.3 % (0.2-1.0); EOSINOPHILS # (AUTO) 0.2 x10^3/uL (0.0-0.2); EOSINOPHILS % (AUTO) 3.9 % (0.9-2.9); HEMATOCRIT 44.7 % (36.0-47.0); HEMOGLOBIN 14.7 g/dL (12.0-16.0); LYMPHOCYTES # (AUTO) 0.5 X10^3/uL (1.3-2.9); LYMPHOCYTES % (AUTO) 11.2 % (21.0-51.0); MEAN CORPUSCULAR HEMOGLOBIN 33.4 pg (27.0-34.0); MEAN CORPUSCULAR VOLUME 101.2 fL (80.0-100.0); MEAN PLATELET VOLUME 9.7 fL (7.4-11.0); MONOCYTES # (AUTO) 0.3 x10^3/uL (0.3-0.8); MONOCYTES % (AUTO) 7.4 % (0.0-13.0); NEUTROPHILS # (AUTO) 3.4 x10^3/uL (2.2-4.8); NEUTROPHILS % (AUTO) 77.2 % (42.0-75.0); PLATELET COUNT 129 X10^3/uL (150.0-450.0); RED BLOOD COUNT 4.42 X10^6/uL (3.5-5.4); RED CELL DISTRIBUTION WIDTH 14.6 % (11.6-16.5); WHITE BLOOD COUNT 4.4 X10^3/uL (3.6-10.0)
[2020-11-14 06:15] LABS: BLOOD UREA NITROGEN 16 mg/dL (7-18); CALCIUM 8.2 mg/dL (8.5-10.1); CHLORIDE 99 mmol/L (98-107); CREATININE 0.95 mg/dL (0.55-1.02); SODIUM 137 mmol/L (136-145); eGFR NON BLACK RACES > 60 (>60)
[2020-11-14] MEDS: LEVAQUIN PREMIX IV 750 MG 750 MG/150 ML BAG IV SCH (08:47)
[2020-11-14] MEDS: NYSTATIN POWDER TOP SCH ×2 (08:48→20:30)
[2020-11-14] MEDS: ELIQUIS PO SCH ×2 (08:48→20:30)
[2020-11-14] MEDS: NYSTATIN CREAM TOP SCH ×2 (08:48→21:57)
[2020-11-14] MEDS: FOLIC ACID TAB 1 MG PO SCH (08:48)
[2020-11-14] MEDS: LASIX PO SCH ×2 (09:56→18:18)
[2020-11-14] MEDS: DIFLUCAN 100 MG IV (MIX by PHARMACY)* 100 MG/50 ML BAG IV SCH (09:56)
[2020-11-14] MEDS ORDERED: TORADOL 15 MG VIAL IVP ONE (11:35)
[2020-11-14 13:22] LABS: BILIRUBIN,URINE NEGATIVE (NEGATIVE); BLOOD/HEMOGLOBIN,URINE 5+ (NEGATIVE); GLUCOSE, URINE NEGATIVE (NEGATIVE); KETONES,URINE NEGATIVE (NEGATIVE); LEUKOCYTE ESTERASE ,URINE 1+ (NEGATIVE); NITRITES,URINE NEGATIVE (NEGATIVE); PH,URINE 6.5 (5.0 - 8.0); PROTEIN,URINE 1+ (NEGATIVE); UROBILINOGEN,URINE NORMAL (NORMAL)
[2020-11-14 13:30] LABS: APPEARANCE,URINE SLIGHTLY HAZY (CLEAR); BACTERIA,URINE TRACE /HPF (NEGATIVE); COLOR,URINE PINK (YELLOW); RBC,URINE 30-50 /HPF (0-3); SQUAMOUS EPITHELIAL CELL,UR RARE /HPF (NEGATIVE)
[2020-11-14] MEDS ORDERED: DILAUDID INJ IVP ONE (15:02)
--- NOTE | 2020-11-14 15:07 | PCM.PROG ---
Progress Note Progress Note for Day of Date of Exam: 11/14/20 Subjective Subjective: Patient seen at bedside, no overnight events. Patient states she is doing ok. She is being treated for CHF exacerbation, acute respiratory failure due to PE, pneumonia and right leg necrotic ulcer s/p I&D. On exam, patient was not wearing her oxygen. She appears in no respiratory distress. Denies fever or chills. Denies cough. Patient was seen by Dr. Reyna yesterday and had refused wound vac. She did not want home health coming over to assist with wound vac at home. Today patient has agreed to have wound vac placed and home health set up. Patient still has a nation and states it was not removed yesterday. She also does not recall working with PT/OT. Labs: Hgb 14.7 Plt 129 Na: 137 BUN/Cr: 16/0.95 Plan: will discuss with Dr. Reyna as patient is ok with having wound vac today. CM will work on getting home health set up. Continue bladder training and removal of nation. Will get a UA as the urine has a pinkish color. PT/OT as tolerated to get patient up in the chair. Continue IV abx and PO lasix. Continue eliquis. Monitor AM labs and imaging. Past Medical Family Social History Past Med/Fam/Surg Hx: No changes since H&P Allergies: Allergies ceftriaxone [From Rocephin] Allergy (Verified 03/26/19 10:56) Penicillins Allergy (Verified 03/26/19 10:56) Review of Systems ROS: No change since H&P Vital Signs and I&O's Vital Signs: Temperature 98.1 F Pulse Rate [Brachial] 92 Pulse Rate 72 Respiratory Rate 24 Blood Pressure [Left Calf] 138/72 Blood Pressure [Right Arm] 121/58 Blood Pressure 118/56 O2 Sat by Pulse Oximetry 96 Intake and Output: Intake & Output 11/11/20 11/12/20 11/13/20 11/14/20 23:59 23:59 23:59 23:59 Intake Total 1402 / 1402 1380 / 1380 1605 / 1605 370 / 370 Output Total 2600 / 2600 1800 / 1800 1700 / 1700 500 / 500 Balance -1198 / -1198 -420 / -420 -95 / -95 -130 / -130 Physical Exam Oriented: Normal Eyes: Normal Ear: Normal Nose: Normal Throat: Normal Respiratory: Generalized and Diminished Cardiovascular: Edema (B/L LE edema, improved significantly ) Auscultation: Bowel Sounds: Normal Tenderness: Normal Skin: Tender and Wound (se above 9 x 6 cm ulcer lateral RT lower leg above the ankle, surrounding erythema improved ) Musculoskeletal: Right, Leg, Swelling and Tender Psychiatric: Normal Mood Description: Calm Affect: Normal Speech Pattern: Clear and Appropriate Laboratory and Diagnostics Result Diagrams: 11/14/20 05:11 11/14/20 05:11 Labs: 11/06/20 09:00 Blood Blood Culture - Final 11/06/20 09:26 Blood Blood Culture - Final 11/08/20 13:56 Leg - Right Wound Gram Stain - Final 11/08/20 13:56 Leg - Right Wound Culture - Final Acinetobacter Baumanii/Haemoly Staphylococcus Aureus Strep Agalactiae - (Group B) 11/05/20 21:56 Leg - Right Wound Gram Stain - Final 11/05/20 21:56 Leg - Right Wound Culture - Final Acinetobacter Baumanii/Haemoly Staphylococcus Aureus Laboratory WBC 4.4 X10^3/uL (3.6-10.0) 11/14/20 05:11 RBC 4.42 X10^6/uL (3.5-5.4) 11/14/20 05:11 Hgb 14.7 g/dL (12.0-16.0) 11/14/20 05:11 Hct 44.7 % (36.0-47.0) 11/14/20 05:11 MCV 101.2 fL (80.0-100.0) H 11/14/20 05:11 MCH 33.4 pg (27.0-34.0) 11/14/20 05:11 MCHC 33.0 g/dL (33.0-35.0) 11/14/20 05:11 RDW 14.6 % (11.6-16.5) 11/14/20 05:11 Plt Count 129 X10^3/uL (150.0-450.0) L 11/14/20 05:11 Plt Count Comment Decreased (ADEQUATE) A 11/10/20 05:20 MPV 9.7 fL (7.4-11.0) 11/14/20 05:11 Neut % (Auto) 77.2 % (42.0-75.0) H 11/14/20 05:11 Lymph % (Auto) 11.2 % (21.0-51.0) L 11/14/20 05:11 [place] % (Auto) 7.4 % (0.0-13.0) 11/14/20 05:11 Eos % (Auto) 3.9 % (0.9-2.9) H 11/14/20 05:11 Baso % (Auto) 0.3 % (0.2-1.0) 11/14/20 05:11 Neut # (Auto) 3.4 x10^3/uL (2.2-4.8) 11/14/20 05:11 Lymph # (Auto) 0.5 X10^3/uL (1.3-2.9) L 11/14/20 05:11 [place] # (Auto) 0.3 x10^3/uL (0.3-0.8) 11/14/20 05:11 Eos # (Auto) 0.2 x10^3/uL (0.0-0.2) 11/14/20 05:11 Baso # (Auto) 0.0 X10^3/uL (0.0-0.1) 11/14/20 05:11 Absolute Nucleated RBC 0.1 /100WBC 11/14/20 05:11 Giant Platelets Occasional 11/08/20 05:40 Plt Morphology Comment Normal (NORMAL) 11/10/20 05:20 RBC Morphology Normal (NORMAL) 11/10/20 05:20 D-Dimer 2.69 ug/ml (0.0-0.57) H* 11/10/20 11:47 Sample Site Lra 11/08/20 05:39 ABG pH 7.310 (7.35-7.45) L 11/08/20 05:39 ABG pCO2 60.0 mmHg (35.0-45.0) H* 11/08/20 05:39 ABG pO2 71.0 mmHg (80.0-100.0) L 11/08/20 05:39 ABG HCO3 30.2 mmol/L (22-26) H* 11/08/20 05:39 ABG O2 Saturation 92.0 % (90-100) 11/08/20 05:39 ABG Base Excess 2.6 mmol/L (-2.0-2.0) H 11/08/20 05:39 Trino Test Pos 11/08/20 05:39 A-a Gradient 139.0 mmHg 11/08/20 05:39 FiO2 40.0 11/08/20 05:39 Blood Gas Comments Froy well mts 11/08/20 05:39 Sodium 137 mmol/L (136-145) 11/14/20 05:11 Corrected Sodium TNP 11/14/20 05:11 Potassium 3.6 mmol/L (3.5-5.1) 11/14/20 05:11 Chloride 99 mmol/L (98-107) 11/14/20 05:11 Carbon Dioxide 34.0 mmol/L (21-32) H 11/14/20 05:11 BUN 16 mg/dL (7-18) 11/14/20 05:11 Creatinine 0.95 mg/dL (0.55-1.02) 11/14/20 05:11 Est GFR (MDRD) Af Amer > 60 (>60) 11/14/20 05:11 Est GFR (MDRD) Non-Af > 60 (>60) 11/14/20 05:11 Glucose 78 mg/dL (65-99) 11/14/20 05:11 Lactic Acid 1.6 mmol/L (0.4-2.0) 11/06/20 09:00 Calcium 8.2 mg/dL (8.5-10.1) L 11/14/20 05:11 Corrected Calcium 9.6 mg/dL (8.5-10.1) 11/11/20 05:44 Magnesium 1.7 mg/dL (1.7-2.9) 11/06/20 05:37 Iron 51 ug/dL (50-175) 11/11/20 10:33 Transferrin 183 mg/dL (202-364) L 11/11/20 10:33 Ferritin 270 ng/mL (8-252) H 11/11/20 10:33 Total Bilirubin 1.20 mg/dL (0.2-1.0) H 11/11/20 05:44 AST 68 Units/L (15-37) H 11/11/20 05:44 ALT 46 Units/L (12-78) 11/11/20 05:44 Alkaline Phosphatase 95 Units/L (46-116) 11/11/20 05:44 Creatine Kinase 308 Units/L (26-192) H 11/05/20 21:25 CK-MB (CK-2) 3.1 ng/mL (0-4.0) 11/05/20 21:25 CK/CKMB % Calc 1.0 % (<4) 11/05/20 21:25 Troponin I 0.02 ng/mL (0-1.5) 11/05/20 21:25 C-Reactive Protein 163.70 mg/L (0-3.0) H 11/08/20 05:40 B-Natriuretic Peptide 863 pg/mL (0-79) H* 11/08/20 05:40 Total Protein 6.8 g/dL (6.4-8.2) 11/11/20 05:44 Albumin 2.3 g/dL (3.4-5.0) L 11/11/20 05:44 Globulin 4.5 g/dL (2.5-4.5) 11/11/20 05:44 Albumin/Globulin Ratio 0.5 Ratio (1.1-2.1) L 11/11/20 05:44 Vitamin B12 1503 pg/mL (193-986) H 11/11/20 10:33 Folate 8.0 ng/mL (>8.6) L 11/11/20 10:33 Specimen Type Catherized urine 11/14/20 12:55 Urine Color [place] (YELLOW) 11/14/20 12:55 Urine Appearance Slightly hazy (CLEAR) 11/14/20 12:55 Urine pH 6.5 (5.0 - 8.0) 11/14/20 12:55 Ur Specific [place] 1.010 (1.000-1.030) 11/14/20 12:55 Urine Protein 1+ (NEGATIVE) 11/14/20 12:55 Urine Glucose (UA) Negative (NEGATIVE) 11/14/20 12:55 Urine Ketones Negative (NEGATIVE) 11/14/20 12:55 Urine Occult Blood 5+ (NEGATIVE) 11/14/20 12:55 Urine Nitrite Negative (NEGATIVE) 11/14/20 12:55 Urine Bilirubin Negative (NEGATIVE) 11/14/20 12:55 Urine Urobilinogen Normal (NORMAL) 11/14/20 12:55 Ur Leukocyte Esterase 1+ (NEGATIVE) 11/14/20 12:55 Urine RBC 30-50 /HPF (0-3) A 11/14/20 12:55 Urine WBC 3-5 /HPF (0-5) 11/14/20 12:55 Ur Squamous Epith Cells Rare /HPF (NEGATIVE) 11/14/20 12:55 Urine Bacteria Trace /HPF (NEGATIVE) 11/14/20 12:55 Hyaline Casts Many /LPF (NEGATIVE) 11/06/20 00:19 Urine Mucus Few /HPF (NEGATIVE) 11/06/20 00:19 Ur Culture Indicated? No/not indicated 11/14/20 12:55 SARS-CoV-2 (PCR) Negative (NEGATIVE) 11/05/20 22:21 Influenza Type A (PCR) Negative (NEGATIVE) 11/05/20 22:21 Influenza Type B (PCR) Negative (NEGATIVE) 11/05/20 22:21 RSV (PCR) Negative (NEGATIVE) 11/05/20 22:21 Tissue Pathology To follow 11/08/20 14:09 Plan (1) Pulmonary embolism: Status: Acute Qualifiers: Acute cor pulmonale presence: unspecified Chronicity: acute Pulmonary embolism type: unspecified Qualified Code(s): I26.99 - Other pulmonary embolism without acute cor pulmonale (2) Lower extremity cellulitis: Status: Acute Qualifiers: Laterality: right Qualified Code(s): L03.115 - Cellulitis of right lower limb Plan: CONSULT GENERAL SURGERY, VANCOMYCIN 1.5G IV DAILY, LEVAQUIN 750MG IV DAILY, LASIX 20MG IV BID, MORPHINE 4MG IV Q6H PRN, AND ZOFRAN 4MG IV Q6H PRN. (3) Wound of lower extremity: Status: Acute Qualifiers: Encounter type: initial encounter Laterality: right Qualified Code(s): S81.801A - Unspecified open wound, right lower leg, initial encounter (4) Venous ulcer of right leg: Status: Acute (5) Pneumonia: Status: Acute Qualifiers: Laterality: bilateral Lung location: unspecified part of lung Pneumonia type: due to unspecified organism Qualified Code(s): J18.9 - Pneumonia, unspecified organism (6) Obesity: Status: Acute Qualifiers: Body mass index: BMI 50.0-59.9 Obesity classification: adult class 3 (BMI >= 40) Obesity type: unspecified obesity type Serious obesity comorbidity presence: without serious comorbidity Qualified Code(s): E66.01 - Morbid (severe) obesity due to excess calories; Z68.43 - Body mass index [BMI] 50.0- 59.9, adult (7) Acute exacerbation of CHF (congestive heart failure): Status: Acute Qualifiers: Heart failure type: right-sided Qualified Code(s): I50.813 - Acute on chronic right heart failure (8) Acute respiratory failure with hypoxia and hypercapnia: Status: Acute (9) Hypoventilation associated with obesity syndrome: Status: Acute (10) Hx of breast cancer: Status: Acute
--- NOTE | 2020-11-14 15:43 | DR.PROGNOT ---
Hospital Progress Notes - Progress Note for Day of: Progress Note Date: 11/14/20 - Chief Complaint Chief Complaint: mild drainage on the dressing.. no pain . has very limited ability to ambulate . no CP or palpitation .. - Past Medical Family Social History Past Med/Fam/Surg Hx: No changes since H&P Allergies: Allergies ceftriaxone [From Rocephin] Allergy (Verified 03/26/19 10:56) Penicillins Allergy (Verified 03/26/19 10:56) - Review Of Systems ROS: No change since H&P - Vital Signs Vital Signs: Temperature 98.1 F Pulse Rate [Brachial] 92 Pulse Rate 72 Respiratory Rate 18 Blood Pressure [Left Calf] 138/72 Blood Pressure [Right Arm] 121/58 Blood Pressure 118/56 O2 Sat by Pulse Oximetry 96 - Physical Exam Oriented: Normal Eyes: Normal Ear: Normal Nose: Normal Throat: Normal Respiratory: Generalized, Diminished Cardiovascular: Edema (B/L LE edema, improved significantly) : Normal GI:Auscultation: Normal GI:Palpation: Normal GI: Tenderness: Normal Skin: Tender, Wound (se above 9 x 6 cm ulcer lateral RT lower leg above the ankle, surrounding erythema improved) Musculoskeletal: Right, Leg, Swelling, Tender Psychiatric: Normal Mood Description: Calm Affect: Normal Speech Pattern: Clear, Appropriate - Laboratory and Diagnostics Result Diagrams: 11/14/20 05:11 11/14/20 05:11 Labs: 11/06/20 09:00 Blood Blood Culture - Final 11/06/20 09:26 Blood Blood Culture - Final 11/08/20 13:56 Leg - Right Wound Gram Stain - Final 11/08/20 13:56 Leg - Right Wound Culture - Final Acinetobacter Baumanii/Haemoly Staphylococcus Aureus Strep Agalactiae - (Group B) 11/05/20 21:56 Leg - Right Wound Gram Stain - Final 11/05/20 21:56 Leg - Right Wound Culture - Final Acinetobacter Baumanii/Haemoly Staphylococcus Aureus Laboratory WBC 4.4 X10^3/uL (3.6-10.0) 11/14/20 05:11 RBC 4.42 X10^6/uL (3.5-5.4) 11/14/20 05:11 Hgb 14.7 g/dL (12.0-16.0) 11/14/20 05:11 Hct 44.7 % (36.0-47.0) 11/14/20 05:11 MCV 101.2 fL (80.0-100.0) H 11/14/20 05:11 MCH 33.4 pg (27.0-34.0) 11/14/20 05:11 MCHC 33.0 g/dL (33.0-35.0) 11/14/20 05:11 RDW 14.6 % (11.6-16.5) 11/14/20 05:11 Plt Count 129 X10^3/uL (150.0-450.0) L 11/14/20 05:11 Plt Count Comment Decreased (ADEQUATE) A 11/10/20 05:20 MPV 9.7 fL (7.4-11.0) 11/14/20 05:11 Neut % (Auto) 77.2 % (42.0-75.0) H 11/14/20 05:11 Lymph % (Auto) 11.2 % (21.0-51.0) L 11/14/20 05:11 [place] % (Auto) 7.4 % (0.0-13.0) 11/14/20 05:11 Eos % (Auto) 3.9 % (0.9-2.9) H 11/14/20 05:11 Baso % (Auto) 0.3 % (0.2-1.0) 11/14/20 05:11 Neut # (Auto) 3.4 x10^3/uL (2.2-4.8) 11/14/20 05:11 Lymph # (Auto) 0.5 X10^3/uL (1.3-2.9) L 11/14/20 05:11 [place] # (Auto) 0.3 x10^3/uL (0.3-0.8) 11/14/20 05:11 Eos # (Auto) 0.2 x10^3/uL (0.0-0.2) 11/14/20 05:11 Baso # (Auto) 0.0 X10^3/uL (0.0-0.1) 11/14/20 05:11 Absolute Nucleated RBC 0.1 /100WBC 11/14/20 05:11 Giant Platelets Occasional 11/08/20 05:40 Plt Morphology Comment Normal (NORMAL) 11/10/20 05:20 RBC Morphology Normal (NORMAL) 11/10/20 05:20 D-Dimer 2.69 ug/ml (0.0-0.57) H* 11/10/20 11:47 Sample Site Lra 11/08/20 05:39 ABG pH 7.310 (7.35-7.45) L 11/08/20 05:39 ABG pCO2 60.0 mmHg (35.0-45.0) H* 11/08/20 05:39 ABG pO2 71.0 mmHg (80.0-100.0) L 11/08/20 05:39 ABG HCO3 30.2 mmol/L (22-26) H* 11/08/20 05:39 ABG O2 Saturation 92.0 % (90-100) 11/08/20 05:39 ABG Base Excess 2.6 mmol/L (-2.0-2.0) H 11/08/20 05:39 Trino Test Pos 11/08/20 05:39 A-a Gradient 139.0 mmHg 11/08/20 05:39 FiO2 40.0 11/08/20 05:39 Blood Gas Comments Froy well mts 11/08/20 05:39 Sodium 137 mmol/L (136-145) 11/14/20 05:11 Corrected Sodium TNP 11/14/20 05:11 Potassium 3.6 mmol/L (3.5-5.1) 11/14/20 05:11 Chloride 99 mmol/L (98-107) 11/14/20 05:11 Carbon Dioxide 34.0 mmol/L (21-32) H 11/14/20 05:11 BUN 16 mg/dL (7-18) 11/14/20 05:11 Creatinine 0.95 mg/dL (0.55-1.02) 11/14/20 05:11 Est GFR (MDRD) Af Amer > 60 (>60) 11/14/20 05:11 Est GFR (MDRD) Non-Af > 60 (>60) 11/14/20 05:11 Glucose 78 mg/dL (65-99) 11/14/20 05:11 Lactic Acid 1.6 mmol/L (0.4-2.0) 11/06/20 09:00 Calcium 8.2 mg/dL (8.5-10.1) L 11/14/20 05:11 Corrected Calcium 9.6 mg/dL (8.5-10.1) 11/11/20 05:44 Magnesium 1.7 mg/dL (1.7-2.9) 11/06/20 05:37 Iron 51 ug/dL (50-175) 11/11/20 10:33 Transferrin 183 mg/dL (202-364) L 11/11/20 10:33 Ferritin 270 ng/mL (8-252) H 11/11/20 10:33 Total Bilirubin 1.20 mg/dL (0.2-1.0) H 11/11/20 05:44 AST 68 Units/L (15-37) H 11/11/20 05:44 ALT 46 Units/L (12-78) 11/11/20 05:44 Alkaline Phosphatase 95 Units/L (46-116) 11/11/20 05:44 Creatine Kinase 308 Units/L (26-192) H 11/05/20 21:25 CK-MB (CK-2) 3.1 ng/mL (0-4.0) 11/05/20 21:25 CK/CKMB % Calc 1.0 % (<4) 11/05/20 21:25 Troponin I 0.02 ng/mL (0-1.5) 11/05/20 21:25 C-Reactive Protein 163.70 mg/L (0-3.0) H 11/08/20 05:40 B-Natriuretic Peptide 863 pg/mL (0-79) H* 11/08/20 05:40 Total Protein 6.8 g/dL (6.4-8.2) 11/11/20 05:44 Albumin 2.3 g/dL (3.4-5.0) L 11/11/20 05:44 Globulin 4.5 g/dL (2.5-4.5) 11/11/20 05:44 Albumin/Globulin Ratio 0.5 Ratio (1.1-2.1) L 11/11/20 05:44 Vitamin B12 1503 pg/mL (193-986) H 11/11/20 10:33 Folate 8.0 ng/mL (>8.6) L 11/11/20 10:33 Specimen Type Catherized urine 11/14/20 12:55 Urine Color [place] (YELLOW) 11/14/20 12:55 Urine Appearance Slightly hazy (CLEAR) 11/14/20 12:55 Urine pH 6.5 (5.0 - 8.0) 11/14/20 12:55 Ur Specific [place] 1.010 (1.000-1.030) 11/14/20 12:55 Urine Protein 1+ (NEGATIVE) 11/14/20 12:55 Urine Glucose (UA) Negative (NEGATIVE) 11/14/20 12:55 Urine Ketones Negative (NEGATIVE) 11/14/20 12:55 Urine Occult Blood 5+ (NEGATIVE) 11/14/20 12:55 Urine Nitrite Negative (NEGATIVE) 11/14/20 12:55 Urine Bilirubin Negative (NEGATIVE) 11/14/20 12:55 Urine Urobilinogen Normal (NORMAL) 11/14/20 12:55 Ur Leukocyte Esterase 1+ (NEGATIVE) 11/14/20 12:55 Urine RBC 30-50 /HPF (0-3) A 11/14/20 12:55 Urine WBC 3-5 /HPF (0-5) 11/14/20 12:55 Ur Squamous Epith Cells Rare /HPF (NEGATIVE) 11/14/20 12:55 Urine Bacteria Trace /HPF (NEGATIVE) 11/14/20 12:55 Hyaline Casts Many /LPF (NEGATIVE) 11/06/20 00:19 Urine Mucus Few /HPF (NEGATIVE) 11/06/20 00:19 Ur Culture Indicated? No/not indicated 11/14/20 12:55 SARS-CoV-2 (PCR) Negative (NEGATIVE) 11/05/20 22:21 Influenza Type A (PCR) Negative (NEGATIVE) 11/05/20 22:21 Influenza Type B (PCR) Negative (NEGATIVE) 11/05/20 22:21 RSV (PCR) Negative (NEGATIVE) 11/05/20 22:21 Tissue Pathology To follow 11/08/20 14:09 - Assessment and Plan 1: PE on Anti coagulants . large ulcer RT lower extremity ( s/p debridement and packing ). subsiding cellulitis . chronic leg edema. IV ATB . D/W Pt in details and advised wound vac and placement for 1 to 2 weeks . meanwhile will apply wound vac . 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
[2020-11-15] MEDS: DUONEB 0.5 MG/3 MG (3 mL) NEB SCH (06:19)
[2020-11-15] MEDS: ELIQUIS PO SCH (08:07)
[2020-11-15] MEDS: LASIX PO SCH (08:07)
[2020-11-15] MEDS: FOLIC ACID TAB 1 MG PO SCH (08:07)
[2020-11-15] MEDS: LEVAQUIN PREMIX IV 750 MG 750 MG/150 ML BAG IV SCH (08:07)
[2020-11-15] MEDS ORDERED: NORCO 7.5/325 MG TAB PO PRN (08:23)
--- NOTE | 2020-11-15 13:14 | W.DIS.FURT ---
Summary of Discharge Admission Diagnosis Patient Problems (Updated 11/13/20 @ 09:00 by Unique Carlisle) CHF (congestive heart failure) (Acute) I50.9 Hypertension (Acute) I10 Cellulitis (Acute) L03.90 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 (Acute) L97.914 Edema (Acute) R60.9 Lower extremity cellulitis (Acute) L03.119 Wound of lower extremity (Acute) S81.809A Vital Signs: Vital Signs (72 hours) 11/12/20 14:00 11/12/20 16:00 11/12/20 20:00 Temperature 98.1 F 99.0 F Pulse Rate 90 Pulse Rate [Brachial] 92 H 93 H Respiratory Rate 18 12 Blood Pressure Blood Pressure [Left Calf] Blood Pressure [Right Arm] 98/55 93/59 O2 Sat by Pulse Oximetry 93 L 92 L 92 L 11/12/20 20:13 11/12/20 21:13 11/12/20 21:16 Temperature Pulse Rate 93 H Pulse Rate [Brachial] Respiratory Rate 18 19 Blood Pressure Blood Pressure [Left Calf] Blood Pressure [Right Arm] O2 Sat by Pulse Oximetry 94 L 11/13/20 00:00 11/13/20 04:00 11/13/20 06:24 Temperature 97.8 F 98.4 F Pulse Rate Pulse Rate [Brachial] 94 H 88 Respiratory Rate 14 16 15 Blood Pressure Blood Pressure [Left Calf] Blood Pressure [Right Arm] 106/66 107/63 O2 Sat by Pulse Oximetry 92 L 92 L 11/13/20 07:24 11/13/20 08:00 11/13/20 12:00 Temperature 98.4 F 98.3 F Pulse Rate Pulse Rate [Brachial] 90 90 Respiratory Rate 16 20 20 Blood Pressure Blood Pressure [Left Calf] Blood Pressure [Right Arm] 90/54 84/54 O2 Sat by Pulse Oximetry 91 L 90 L 11/13/20 14:15 11/13/20 16:00 11/13/20 18:01 Temperature 97.5 F L Pulse Rate 91 H Pulse Rate [Brachial] 88 Respiratory Rate 20 16 Blood Pressure Blood Pressure [Left Calf] Blood Pressure [Right Arm] 114/74 O2 Sat by Pulse Oximetry 90 L 97 11/13/20 19:01 11/13/20 20:00 11/14/20 00:00 Temperature 98.7 F 97.9 F Pulse Rate Pulse Rate [Brachial] 88 93 H Respiratory Rate 20 18 16 Blood Pressure Blood Pressure [Left Calf] 89/61 Blood Pressure [Right Arm] 96/60 O2 Sat by Pulse Oximetry 91 L 93 L 11/14/20 04:00 11/14/20 04:07 11/14/20 05:07 Temperature 98.1 F Pulse Rate Pulse Rate [Brachial] 83 Respiratory Rate 16 12 16 Blood Pressure Blood Pressure [Left Calf] Blood Pressure [Right Arm] 121/58 O2 Sat by Pulse Oximetry 100 11/14/20 05:25 11/14/20 08:00 11/14/20 12:00 Temperature 98.0 F 98.1 F Pulse Rate 72 Pulse Rate [Brachial] 89 92 H Respiratory Rate 24 24 Blood Pressure Blood Pressure [Left Calf] 101/69 138/72 Blood Pressure [Right Arm] O2 Sat by Pulse Oximetry 94 L 100 96 11/14/20 15:27 11/14/20 15:57 11/14/20 16:00 Temperature 98.2 F Pulse Rate Pulse Rate [Brachial] 96 H Respiratory Rate 18 20 20 Blood Pressure Blood Pressure [Left Calf] 97/50 Blood Pressure [Right Arm] O2 Sat by Pulse Oximetry 92 L 11/14/20 16:27 11/14/20 19:34 11/14/20 20:00 Temperature 98.0 F Pulse Rate Pulse Rate [Brachial] 99 H Respiratory Rate 20 17 16 Blood Pressure Blood Pressure [Left Calf] 116/78 Blood Pressure [Right Arm] O2 Sat by Pulse Oximetry 94 L 11/14/20 20:34 11/14/20 22:00 11/15/20 00:00 Temperature 97.8 F Pulse Rate 87 Pulse Rate [Brachial] 89 Respiratory Rate 17 20 Blood Pressure Blood Pressure [Left Calf] 95/61 Blood Pressure [Right Arm] O2 Sat by Pulse Oximetry 90 L 97 11/15/20 04:00 11/15/20 06:19 11/15/20 08:00 Temperature 97.8 F 98.4 F Pulse Rate 81 Pulse Rate [Brachial] 96 H 92 H Respiratory Rate 16 20 Blood Pressure Blood Pressure [Left Calf] 112/69 Blood Pressure [Right Arm] 128/81 O2 Sat by Pulse Oximetry 93 L 90 L 91 L 11/15/20 08:44 11/15/20 08:58 11/15/20 09:58 Temperature Pulse Rate 81 Pulse Rate [Brachial] Respiratory Rate 20 22 Blood Pressure 118/56 Blood Pressure [Left Calf] Blood Pressure [Right Arm] O2 Sat by Pulse Oximetry 90 L Labs: Laboratory Last Values WBC 4.4 X10^3/uL (3.6-10.0) 11/14/20 05:11 RBC 4.42 X10^6/uL (3.5-5.4) 11/14/20 05:11 Hgb 14.7 g/dL (12.0-16.0) 11/14/20 05:11 Hct 44.7 % (36.0-47.0) 11/14/20 05:11 MCV 101.2 fL (80.0-100.0) H 11/14/20 05:11 MCH 33.4 pg (27.0-34.0) 11/14/20 05:11 MCHC 33.0 g/dL (33.0-35.0) 11/14/20 05:11 RDW 14.6 % (11.6-16.5) 11/14/20 05:11 Plt Count 129 X10^3/uL (150.0-450.0) L 11/14/20 05:11 Plt Count Comment Decreased (ADEQUATE) A 11/10/20 05:20 MPV 9.7 fL (7.4-11.0) 11/14/20 05:11 Neut % (Auto) 77.2 % (42.0-75.0) H 11/14/20 05:11 Lymph % (Auto) 11.2 % (21.0-51.0) L 11/14/20 05:11 [place] % (Auto) 7.4 % (0.0-13.0) 11/14/20 05:11 Eos % (Auto) 3.9 % (0.9-2.9) H 11/14/20 05:11 Baso % (Auto) 0.3 % (0.2-1.0) 11/14/20 05:11 Neut # (Auto) 3.4 x10^3/uL (2.2-4.8) 11/14/20 05:11 Lymph # (Auto) 0.5 X10^3/uL (1.3-2.9) L 11/14/20 05:11 [place] # (Auto) 0.3 x10^3/uL (0.3-0.8) 11/14/20 05:11 Eos # (Auto) 0.2 x10^3/uL (0.0-0.2) 11/14/20 05:11 Baso # (Auto) 0.0 X10^3/uL (0.0-0.1) 11/14/20 05:11 Absolute Nucleated RBC 0.1 /100WBC 11/14/20 05:11 Giant Platelets Occasional 11/08/20 05:40 Plt Morphology Comment Normal (NORMAL) 11/10/20 05:20 RBC Morphology Normal (NORMAL) 11/10/20 05:20 D-Dimer 2.69 ug/ml (0.0-0.57) H* 11/10/20 11:47 Sample Site Lra 11/08/20 05:39 ABG pH 7.310 (7.35-7.45) L 11/08/20 05:39 ABG pCO2 60.0 mmHg (35.0-45.0) H* 11/08/20 05:39 ABG pO2 71.0 mmHg (80.0-100.0) L 11/08/20 05:39 ABG HCO3 30.2 mmol/L (22-26) H* 11/08/20 05:39 ABG O2 Saturation 92.0 % (90-100) 11/08/20 05:39 ABG Base Excess 2.6 mmol/L (-2.0-2.0) H 11/08/20 05:39 Trino Test Pos 11/08/20 05:39 A-a Gradient 139.0 mmHg 11/08/20 05:39 FiO2 40.0 11/08/20 05:39 Blood Gas Comments [place] well mts 11/08/20 05:39 Sodium 137 mmol/L (136-145) 11/14/20 05:11 Corrected Sodium TNP 11/14/20 05:11 Potassium 3.6 mmol/L (3.5-5.1) 11/14/20 05:11 Chloride 99 mmol/L (98-107) 11/14/20 05:11 Carbon Dioxide 34.0 mmol/L (21-32) H 11/14/20 05:11 BUN 16 mg/dL (7-18) 11/14/20 05:11 Creatinine 0.95 mg/dL (0.55-1.02) 11/14/20 05:11 Est GFR (MDRD) Af Amer > 60 (>60) 11/14/20 05:11 Est GFR (MDRD) Non-Af > 60 (>60) 11/14/20 05:11 Glucose 78 mg/dL (65-99) 11/14/20 05:11 Lactic Acid 1.6 mmol/L (0.4-2.0) 11/06/20 09:00 Calcium 8.2 mg/dL (8.5-10.1) L 11/14/20 05:11 Corrected Calcium 9.6 mg/dL (8.5-10.1) 11/11/20 05:44 Magnesium 1.7 mg/dL (1.7-2.9) 11/06/20 05:37 Iron 51 ug/dL (50-175) 11/11/20 10:33 Transferrin 183 mg/dL (202-364) L 11/11/20 10:33 Ferritin 270 ng/mL (8-252) H 11/11/20 10:33 Total Bilirubin 1.20 mg/dL (0.2-1.0) H 11/11/20 05:44 AST 68 Units/L (15-37) H 11/11/20 05:44 ALT 46 Units/L (12-78) 11/11/20 05:44 Alkaline Phosphatase 95 Units/L (46-116) 11/11/20 05:44 Creatine Kinase 308 Units/L (26-192) H 11/05/20 21:25 CK-MB (CK-2) 3.1 ng/mL (0-4.0) 11/05/20 21:25 CK/CKMB % Calc 1.0 % (<4) 11/05/20 21:25 Troponin I 0.02 ng/mL (0-1.5) 11/05/20 21:25 C-Reactive Protein 163.70 mg/L (0-3.0) H 11/08/20 05:40 B-Natriuretic Peptide 863 pg/mL (0-79) H* 11/08/20 05:40 Total Protein 6.8 g/dL (6.4-8.2) 11/11/20 05:44 Albumin 2.3 g/dL (3.4-5.0) L 11/11/20 05:44 Globulin 4.5 g/dL (2.5-4.5) 11/11/20 05:44 Albumin/Globulin Ratio 0.5 Ratio (1.1-2.1) L 11/11/20 05:44 Vitamin B12 1503 pg/mL (193-986) H 11/11/20 10:33 Folate 8.0 ng/mL (>8.6) L 11/11/20 10:33 Specimen Type Catherized urine 11/14/20 12:55 Urine Color [place] (YELLOW) 11/14/20 12:55 Urine Appearance Slightly hazy (CLEAR) 11/14/20 12:55 Urine pH 6.5 (5.0 - 8.0) 11/14/20 12:55 Ur Specific [place] 1.010 (1.000-1.030) 11/14/20 12:55 Urine Protein 1+ (NEGATIVE) 11/14/20 12:55 Urine Glucose (UA) Negative (NEGATIVE) 11/14/20 12:55 Urine Ketones Negative (NEGATIVE) 11/14/20 12:55 Urine Occult Blood 5+ (NEGATIVE) 11/14/20 12:55 Urine Nitrite Negative (NEGATIVE) 11/14/20 12:55 Urine Bilirubin Negative (NEGATIVE) 11/14/20 12:55 Urine Urobilinogen Normal (NORMAL) 11/14/20 12:55 Ur Leukocyte Esterase 1+ (NEGATIVE) 11/14/20 12:55 Urine RBC 30-50 /HPF (0-3) A 11/14/20 12:55 Urine WBC 3-5 /HPF (0-5) 11/14/20 12:55 Ur Squamous Epith Cells Rare /HPF (NEGATIVE) 11/14/20 12:55 Urine Bacteria Trace /HPF (NEGATIVE) 11/14/20 12:55 Hyaline Casts Many /LPF (NEGATIVE) 11/06/20 00:19 Urine Mucus Few /HPF (NEGATIVE) 11/06/20 00:19 Ur Culture Indicated? 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 (Acute) Edema (Acute) Acute exacerbation of CHF (congestive heart failure) (Acute) Hypoventilation associated with obesity syndrome (Acute) Acute respiratory failure with hypoxia and hypercapnia (Acute) Pneumonia (Acute) Pulmonary infiltrate (Acute) Sinus tachycardia (Acute) Bilateral pulmonary embolism (Acute) Hypertension (Acute) Hx of breast cancer (Acute) Thyroid nodule (Acute) Chest pain (Acute) Cholelithiases (Acute) Venous ulcer of right leg (Acute) Obesity (Acute) Lower extremity cellulitis (Acute) Wound of lower extremity (Acute) Plan of Treatment: Continue with present treatment and follow up plan. Pt is to keep follow up appointment as instructed and take medications as ordered. Discharge Medications Discharge Medications: ceftriaxone [From Rocephin] Allergy (Verified 03/26/19 10:56) Penicillins Allergy (Verified 03/26/19 10:56) New Prescriptions apixaban [Eliquis] 5 mg PO BID 30 Days #60 tab 11/15/20 [Rx] folic acid 1 mg PO DAILY 30 Days #30 tab 11/15/20 [Rx] furosemide 40 mg PO BID@0900,1700 30 Days #60 tab 11/15/20 [Rx] hydrocodone-acetaminophen 1 tab PO Q4H PRN 7 Days #42 tab MDD 4 tabs 11/15/20 [Rx] levofloxacin 500 mg PO DAILY #7 tab 11/15/20 [Rx] Discharge Plan Discharge Plan Patient Disposition: 06 HOME HEALTH SERVICE Condition: Stable Health Concerns: Post Hospitalization: new medications and changes needed to prevent readmission or further decline. Pt educated and given instructions on all concerns. Care Plan Goals: Problem: Pain/Alteration in Comfort Goal: Improve/ Resolve Pain; Achieve Pain Tolerance Instructions: Take pain medications as prescribed. Contact your primary care provider if your pain is unrelieved or worsens. Follow up with primary care provider as directed. Plan of Treatment: Continue with present treatment and follow up plan. Pt is to keep follow up appointment as instructed and take medications as ordered. Prescriptions: New furosemide 40 mg Tablet 40 mg PO BID@0900,1700 30 Days Qty: 60 RF: 0 hydrocodone-acetaminophen 7.5-325 mg Tablet 1 tab PO Q4H MDD 4 tabs PRN (Reason: pain) 7 Days Qty: 42 RF: 0 folic acid 1 mg Tablet 1 mg PO DAILY 30 Days Qty: 30 RF: 0 levofloxacin 500 mg tablet 500 mg PO DAILY Qty: 7 RF: 0 Eliquis 5 mg Tablet 5 mg PO BID 30 Days Qty: 60 RF: 1 Discontinued furosemide 40 mg tablet 40 mg PO DAILY RF: 0 Follow ups/Referrals Follow ups/Referrals: ARMIN SHAH [STAFF PHYSICIAN] - 11/28/20 11:30 am Unique Carlisle [Primary Care Provider] - 11/28/20 11:00 am Instructions Instructions: Home Oxygen Use, Adult, Steps to Quit Smoking, [id number], Negative Pressure Wound Therapy Dressing Care, Cellulitis, Adult, [id number], Hypertension, [id number], Surgical Wound Debridement, Care After, Heart Failure, [id number], Community-Acquired Pneumonia, Adult, [id number]
[2020-11-15 14:16] VITALS: BP 116/77
== END 2020-11-15 15:05 | disposition home health service (06) | DRG 264 ==
LOC: ER 20:32 → MED/SURG 11-06 00:21
PROVIDERS: ADMIT Internal Medicine; ATTEND Internal Medicine
DX: E66.01 Morbid (severe) obesity due to excess calories; S81.801A Unspecified open wound, right lower leg, initial encounter; J96.01 Acute respiratory failure with hypoxia; J96.02 Acute respiratory failure with hypercapnia; R06.02 Shortness of breath; B95.61 Methicillin susceptible Staphylococcus aureus infection as the cause of diseases classified elsewhere; J18.8 Other pneumonia, unspecified organism; R79.89 Other specified abnormal findings of blood chemistry; I26.99 Other pulmonary embolism without acute cor pulmonale; B95.1 Streptococcus, group B, as the cause of diseases classified elsewhere; Z20.822 Contact with and (suspected) exposure to COVID-19; R26.89 Other abnormalities of gait and mobility; Z85.3 Personal history of malignant neoplasm of breast; B96.89 Other specified bacterial agents as the cause of diseases classified elsewhere; I50.813 Acute on chronic right heart failure; R60.0 Localized edema; L03.115 Cellulitis of right lower limb; L97.919 Non-pressure chronic ulcer of unspecified part of right lower leg with unspecified severity